=== PATIENT | female | born 1950 | race Caucasian/White ===

== ENCOUNTER 2022-03-31 12:26 | Outpatient (REF) | payer OTHER, SELFPAY ==
[2022-03-31 13:35] LABS: Binax Now Covid-19 Ag Negative (Negative)
[2022-03-31 13:36] LABS: Binax Internal Control QC Valid; Binax Performed by: HO.BONILM
[2022-03-31 13:50] LABS: MANUAL DIFF FLAG NO
[2022-03-31 14:02] LABS: Basophils Absolute Auto 0.1 X10*3/uL (0.0-0.2); Basophils Percent Auto 0.5 % (0-2); Eosinophils Absolute Auto 0.3 X10*3/uL (0.0-0.4); Eosinophils Percent Auto 3.3 % (0-4); Hematocrit 44.6 % (37.0-47.0); Hemoglobin 14.4 g/dl (12.0-16.0); Imm Gran Abs Auto 0.03 X10*3/uL (0.00-0.03); Imm Gran Pct Auto 0.3 % (0.0-0.4); Lymphocytes Absolute Auto 1.9 X10*3/uL (1.2-4.9); Lymphocytes Percent Auto 19.9 % (20-40); Mean Corpuscular HGB Conc 32.3 g/dl (31.0-35.0); Mean Corpuscular Volume 95.9 fL (80.0-98.0); Mean Platelet Volume 11.2 fL (9.4-12.3); Monocytes Absolute Auto 0.8 X10*3/uL (0.1-1.2); Monocytes Percent Auto 7.9 % (2-11); Neutrophils Absolute Auto 6.5 x10*3/uL (2.0-8.3); Neutrophils Percent Auto 68.1 % (45-73); Platelet Count 254 X10*3/uL (160-400); Red Blood Count 4.65 X10*6/uL (4.20-5.50); Red Cell Distribution Width 13.2 % (11.0-16.0); White Blood Count 9.5 X10*3/uL (4.8-10.8)
[2022-03-31 14:11] LABS: Alanine Aminotransferase 16 U/L (0-31); Albumin Level 4.3 g/dL (3.5-5.0); Alkaline Phosphatase 109 U/L (39-117); Anion Gap 15 (12-20); Aspartate Amino Transferase 19 U/L (5-31); Bilirubin Total 0.8 mg/dL (0.0-1.0); Blood Urea Nitrogen 15 mg/dL (9-16); Calcium 9.8 mg/dL (8.4-10.2); Carbon Dioxide 24 mmol/L (22-29); Chloride 103 mmol/L (96-108); Cholesterol 202 mg/dL; Estimated Glomerular Filt Rate > 60; Glucose Fasting 112 mg/dL (60-99); HDL Cholesterol 39 mg/dL; LDL Cholesterol Calculated 118 mg/dl; Potassium 4.6 mmol/L (3.3-5.1); Sodium 137 mmol/L (135-145); Total Protein 6.6 g/dL (6.5-8.0); Triglycerides 228 mg/dL
[2022-03-31 14:31] LABS: TSH reflex Free T4 0.98 uIU/mL (0.32-4.0)
== END 2022-03-31 12:27 | disposition home or self-care (01) ==
LOC: HO.HMGCLDS 12:26
PROVIDERS: PCP Internal Medicine; Visit Provider Internal Medicine
DX: E66.09 Other obesity due to excess calories (principal); J02.9 Acute pharyngitis, unspecified; Z76.89 Persons encountering health services in other specified circumstances
CPT/HCPCS: 36415; 80053; 80061; 84443; 85025

== ENCOUNTER 2022-04-07 08:04 | Outpatient (REF) | payer OTHER, SELFPAY ==
--- NOTE | ~2022-04-07 | MM_ITS ---
EXAMINATION: MM SCREENING DIGITAL BREAST TOMOSYNTHESIS, BILATERAL CLINICAL INFORMATION: Screening. Asymptomatic. The lifetime risk of breast cancer based on the Tyrer-Cuzick Model is 3%. COMPARISON: Outside mammography: 08/14/2019, 08/04/2018, 07/13/2016 ([place]). TECHNIQUE: Digital breast tomosynthesis is performed in both the craniocaudal and mediolateral oblique views along with computer-aided detection (CAD). Synthesized 2D images are generated from the tomosynthesis. FINDINGS: There are scattered areas of fibroglandular density (ACR BI-RADS breast composition Category b). There are no significant masses, abnormal calcifications, or other abnormalities. Parenchymal pattern is similar to prior studies. No developing density. The axilla and skin contours are unremarkable. MM/MM tomosynthesis screening BI IMPRESSION: No mammographic evidence of malignancy. ASSESSMENT: BI-RADS 1: Negative RECOMMENDATION: Routine annual mammography screening. This patient's information was entered into a reminder system with a target due date for their next mammogram.
== END 2022-04-07 08:05 | disposition home or self-care (01) ==
LOC: HO.MAMMO 08:04
PROVIDERS: Visit Provider Internal Medicine
DX: Z12.31 Encounter for screening mammogram for malignant neoplasm of breast (principal)
CPT/HCPCS: 77063; 77067

== ENCOUNTER → 2022-05-19 14:17 | Outpatient (BNVA) | payer OTHER, SELFPAY | PROVIDERS: PCP Internal Medicine; Visit Provider Nurse Practitioner Family | DX: Z01.818 Encounter for other preprocedural examination (principal) | CPT/HCPCS: 99202 ==

== ENCOUNTER 2022-05-27 14:38 | Outpatient (REF) | payer OTHER, SELFPAY ==
--- NOTE | ~2022-05-27 | US_ITS ---
EXAMINATION: US VENOUS ULTRASOUND WITH DOPPLER LOWER EXTREMITY, LEFT CLINICAL INFORMATION: Left lower extremity edema COMPARISON: None TECHNIQUE: Ultrasound of the deep veins is performed from the hip to the calf with compression sonography and color and pulse Doppler assessment. Spectral analysis with color-flow imaging is performed. FINDINGS: There is normal venous compression and respiratory variation and augmented flow. The visualized common femoral vein, superficial femoral vein, profunda femoral vein, popliteal vein, and the trifurcation region shows no evidence of deep venous thrombosis. There is no significant popliteal fossa cyst. The right common femoral vein appears normal. If the patient's symptoms persist, followup ultrasound in 5 days 7 days might be of value to exclude proximal propagation from a non-visualized calf vein. US/US venous duplex LE LT IMPRESSION: No DVT demonstrated in the left lower extremity.
== END 2022-05-27 14:39 | disposition home or self-care (01) ==
LOC: HO.US 14:38
PROVIDERS: Visit Provider Internal Medicine
DX: R60.0 Localized edema (principal)
CPT/HCPCS: 93971

== ENCOUNTER 2022-07-22 10:04 | Outpatient (REF) | payer OTHER, SELFPAY ==
--- NOTE | ~2022-07-22 | XR_ITS ---
EXAMINATION: XR AP BILATERAL KNEE AND RIGHT KNEE CLINICAL INFORMATION: Pain right knee. COMPARISON: None TECHNIQUE: AP bilateral knee standing. Right knee 2 views. FINDINGS: AP BILATERAL KNEE: There is mild reduction in the medial compartment of both knees. The lateral compartment joint space is maintained normal. No bony erosive changes seen. There is a 1.9 cm calcified density medial to the proximal left tibia. LEFT KNEE: There is mild reduction in patellofemoral compartment joint space without joint effusion or bony erosive changes. There is mild soft tissue swelling. XR/XR knee LT 2V IMPRESSION: 1. Degenerative arthritic changes medial compartment both knees. No visible acute fracture or dislocation seen. 2. Round soft tissue calcification medial to the proximal tibia left knee.
--- NOTE | ~2022-07-22 | XR_ITS ---
EXAMINATION: XR AP BILATERAL KNEE AND RIGHT KNEE CLINICAL INFORMATION: Pain right knee. COMPARISON: None TECHNIQUE: AP bilateral knee standing. Right knee 2 views. FINDINGS: AP BILATERAL KNEE: There is mild reduction in the medial compartment of both knees. The lateral compartment joint space is maintained normal. No bony erosive changes seen. There is a 1.9 cm calcified density medial to the proximal left tibia. LEFT KNEE: There is mild reduction in patellofemoral compartment joint space without joint effusion or bony erosive changes. There is mild soft tissue swelling. XR/XR knee standing BI IMPRESSION: 1. Degenerative arthritic changes medial compartment both knees. No visible acute fracture or dislocation seen. 2. Round soft tissue calcification medial to the proximal tibia left knee.
== END 2022-07-22 10:05 | disposition home or self-care (01) ==
LOC: HO.HOSX 10:04
PROVIDERS: Visit Provider Physician Assistant
DX: M17.12 Unilateral primary osteoarthritis, left knee (principal); M25.561 Pain in right knee
CPT/HCPCS: 20610; 73560; 73565; 99202; J1040

== ENCOUNTER 2024-04-10 13:55 | Outpatient (AMB) | payer OTHER, SELFPAY ==
[2024-04-10 13:56] VITALS: BP 110/60; PULSE 71; O2SAT 96; BMI 23.0
--- NOTE | 2024-04-10 13:56 | A.OFFPC_ITS ---
Vital Signs 3 04/10/24 13:56 Height 5 ft 2 in Weight 126 lb BMI 23.0 BP 110/60 Blood Pressure Location Rt brachial Position Sitting Pulse 71 Pulse Source Pulse Oximeter Pulse Oximetry (%) 96 Oxygen Delivery Method Room Air Intake Visit Reasons: Physical Allergies Sulfa (Sulfonamide Antibiotics) Adverse Reaction (Mild, Verified 04/10/24 13:56) Rash Medication List - Last Reconciled 04/10/24 by Michael Su MD calcium carbonate (Calcium 600) 600 mg PO DAILY ipratropium bromide 2 sprays intranasal TID magnesium citrate 100 mg PO DAILY multivitamin (Daily Multi-Vitamin tablet) 1 tab PO DAILY Tobacco use date assessed: 04/10/24 Fall risk assessment: No Falls in past year Last assessed Fall Risk: 04/10/24 Dental Screening Dental Screen Date: 04/10/24 Did you have a dental visit in the last 12 months?: Yes Did you have a dental problem in the last 6 months where you did not have access to dental care?: No Was dental information given to patient?: Patient has dentist HPI Physical 2 HPI0 Details Patient is 68-year-old female came for physical exam Patient does not want to have mammogram or bone density She had a Cologuard test done in April of 2022 which is negative Patient is requesting a referral to orthopedic for cortisone injection left knee She has also developed pain SI joint on left side she does not want any injections in that joint I would recommend to take a leave with breakfast and see if that helps Patient have impaired fasting sugar, she will have labs done today. She offer no other complaints. [facility] Medical History No significant past medical history Surgical History Hx of colonoscopy H/O arthroscopy of left knee Family History Sister Pancreatic cancer Brother Gallbladder cancer Father Respiratory failure Social History Housing: Apartment Patient Tobacco Use Status: Former Tobacco user e-Cigarette/Vaping Use: Never Used service: No Current occupational status: retired Cognitive needs: No Hearing needs: No Vision needs: No Questionnaire PHQ-9 Over the last 2 weeks, how often have you been bothered by any of the following problems? 1. Little interest or pleasure in doing things: not at all 2. Feeling down, depressed, or hopeless: not at all 3. Trouble falling or staying asleep, or sleeping too much: several days 4. Feeling tired or having little energy: several days 5. Poor appetite or overeating: several days 6. Feeling bad about yourself - or that you are a failure or have let yourself or your family down: several days 7. Trouble concentrating on things, such as reading the newspaper or watching television: not at all 8. Moving or speaking so slowly that other people could have noticed. Or the opposite - being so fidgety or restless that you have been moving around a lot more than usual: not at all 9. Thoughts that you would be better off or of hurting yourself in some way: not at all Total score: 4 Depression Screening Interpretation: Negative Depression Screening Done: Yes 85813 - PHQ-9 Billing: Yes Source: Developed by Drs. Patrice Dutta, Najma Castañeda, Nick Mendez and colleagues, with an educational rocío from [facility]. Thrive Questionnaire Date Thrive assessed: 04/21/22 I am a: Patient What is your living situation today?: I have a steady place to live Within the past 12 months, did the food you bought not last and you didn't have the money to get more?: Often true Within the past 12 months, did you worry whether your food would run out before you got money to buy more?: Often true Do you have trouble paying for medicines?: Yes Do you have trouble getting transportation to medical appointments?: Yes Do you have trouble paying your heating and electricity bill?: No Do you have trouble taking care of your child, family member or friend?: No Do you have trouble with day-to-day activities such as bathing, preparing meals, shopping, managing finances, etc.?: No Are you currently unemployed and looking for a job?: No Are you interested in more education?: No Please select the resources that you would like help with: None Currently or been in a relationship where the following occur: no concerns reported THRIVE Score: 3 EBONIE-7 AMB Questionnaire EBONIE-7 Date EBONIE - 7 assessed: 04/10/24 Feeling nervous, anxious, or on edge: 0 = Not at all Not being able to stop or control worryin = Several days Worrying too much about different things: 1 = Several days Trouble relaxin = Not at all Being so restless that it is hard to sit still: 0 = Not at all Becoming easily annoyed or irritable: 0 = Not at all Feeling afraid as if something awful might happen: 0 = Not at all Total EBONIE-7 score (0-4 normal; 5-9 mild; 10-14 moderate; 15-21 severe): 2 Source: Developed by Drs. Patrice Dutta, Najma Castañeda, Nick Mendez and colleagues, with an educational rocío from [facility]. EBONIE-7 Assessment Billing EBONIE-7 Assessment Tool: EBONIE-7 Assessment 82631 Review of Systems Const Denies chills, Denies fever(s) and Denies headache(s) Eyes Denies blurry vision ENT Denies headache(s), Denies nasal discharge, Denies nasal obstruction, Denies odynophagia and Denies sinus pain Card Denies chest pain at rest and Denies chest pain with activity Resp Denies cough and Denies hemoptysis GI Denies diarrhea, Denies odynophagia, Denies vomiting and Denies hematemesis Reports as per HPI Musc Denies abnormal gait Skin/Breast Reports as per HPI Neuro Denies Neuro-related abnormal movements, Denies Abnormal speech present, Denies abnormal gait, Denies headache(s) and Denies Sensory deficit (Neuro) Psych Denies mood swings and Denies paranoia Endo Reports as per HPI Dennys/Lymph Reports as per HPI Aller/Immun Reports as per HPI Physical exam (Primary Care) Vital Signs: Last Vital Signs Pulse 71 04/10/24 13:56 BP 110/60 04/10/24 13:56 Pulse Ox 96 04/10/24 13:56 Oxygen Delivery Method Room Air 04/10/24 13:56 BMI result Body Mass Index 23.0 Tobacco/Smoking Status: Tobacco use Status Tobacco use date assessed 04/10/24 04/10/24 14:03 Patient Tobacco Use Status Former Tobacco user 04/10/24 14:03 e-Cigarette/Vaping Use Never Used 04/10/24 14:03 Depression Screening Interpretation: Negative Thrive Assessment: Date of Thrive Assessment Date Thrive assessed 03/31/22 04/10/24 14:03 Currently or been in a relationship where the following occur: no concerns reported Const General: cooperative, comfortable and no acute distress Orientation/consciousness: patient oriented x3 HENMT Head: Yes normocephalic and Yes atraumatic Eyes General: appearance normal, both eyes and all related structures Pupils: Equal, round and reactive pupils present EOM: EOMs intact bilaterally Neck Neck: Yes supple and No lymphadenopathy Thyroid: Thyroid normal Lymphatic: no lymphadenopathy noted Chest Breast/axilla palpation: normal palpation of the breasts Resp Effort & Inspection: normal respiratory effort and able to speak in complete sentences Auscultation: clear to auscultation bilaterally Cardio Heart sounds: S1 normal heart sound present and S2 normal heart sound present GI Palpation (GI): Soft to palpation and nontender Auscultation: normal bowel sounds General: Yes no CVA tenderness Back/Spine/Pelvis Back: no CVA tenderness Back/spine/pelvis image: 2 1. Pain with pressure Skin General skin exam: elasticity normal and turgor normal Neuro General: patient oriented x3 and gait normal Cranial nerves: Yes Equal, round and reactive pupils present Speech: No Abnormal speech present Sensory Exam: No Sensory deficit (Neuro) Coordination: Romberg test negative Extrem General: Yes normal exam except as noted and No edema Elbow/forearm/wrist images: 2 1. Tender to palpation, larger than right knee Assessment and Plan Assessment & Plan (1) Encounter for general adult medical examination with abnormal findings: Code(s): Z00.01 - Encounter for general adult medical examination with abnormal findings (2) Impaired fasting blood sugar: Code(s): R73.01 - Impaired fasting glucose (3) Osteoarthritis of multiple joints: Code(s): M15.9 - Polyosteoarthritis, unspecified Qualifiers: Osteoarthritis type: primary Qualified Code(s): M15.9 - Polyosteoarthritis, unspecified (4) Pain and swelling of left knee: Code(s): M25.562 - Pain in left knee; M25.462 - Effusion, left knee (5) Mammogram declined: Code(s): Z53.20 - Procedure and treatment not carried out because of patient's decision for unspecified reasons Plan Patient is 68-year-old female came for physical exam Patient does not want to have mammogram or bone density She had a Cologuard test done in April of 2022 which is negative Patient is requesting a referral to orthopedic for cortisone injection left knee She has also developed pain SI joint on left side she does not want any injections in that joint I would recommend to take a leave with breakfast and see if that helps Patient have impaired fasting sugar, she will have labs done today. She offer no other complaints. Orders: Orders 2 Comprehensive Met. Panel Today M15.9 - Polyosteoarthritis, unspecified, R73.01 - Impaired fasting glucose, Z00.01 - Encounter for general adult medical examination with abnormal findings Hemoglobin A1c Today M15.9 - Polyosteoarthritis, unspecified, R73.01 - Impaired fasting glucose, Z00.01 - Encounter for general adult medical examination with abnormal findings Complete Blood Count Auto Diff Today M15.9 - Polyosteoarthritis, unspecified, R73.01 - Impaired fasting glucose, Z00.01 - Encounter for general adult medical examination with abnormal findings LDL Cholesterol Direct Today M15.9 - Polyosteoarthritis, unspecified, R73.01 - Impaired fasting glucose, Z00.01 - Encounter for general adult medical examination with abnormal findings Vitamin D 25-OH (D2 and D3) Today M15.9 - Polyosteoarthritis, unspecified Referrals 2 Orthopedics Referral M25.462 - Effusion, left knee, M25.562 - Pain in left knee Coding Level of Care Code Est Pt Prev Care >65y(85863) Diagnoses Encounter for general adult medical examination with abnormal findings Z00.01 Impaired fasting blood sugar R73.01 Primary osteoarthritis involving multiple joints M15.9 Osteoarthritis type: primary Pain and swelling of left knee M25.562; M25.462 Mammogram declined Z53.20 Additional Codes EBONIE-7 Assessment Billing - EBONIE-7 Assessment Tool: EBONIE-7 Assessment 11920 ([id number])
== END 2024-04-10 14:24 | disposition home or self-care (01) ==
PROVIDERS: PCP Internal Medicine; Visit Provider Internal Medicine
DX: Z00.00 Encounter for general adult medical examination without abnormal findings (principal); R73.01 Impaired fasting glucose; M15.9 Polyosteoarthritis, unspecified; M25.562 Pain in left knee; M25.462 Effusion, left knee; Z53.20 Procedure and treatment not carried out because of patient's decision for unspecified reasons
CPT/HCPCS: 99397

== ENCOUNTER 2024-04-10 14:15 | Outpatient (REF) | payer OTHER, SELFPAY ==
[2024-04-10 16:28] LABS: MANUAL DIFF FLAG NO
[2024-04-10 16:37] LABS: Basophils Percent Auto 0.5 % (0-2); Eosinophils Absolute Auto 0.2 X10*3/uL (0.0-0.4); Eosinophils Percent Auto 2.8 % (0-4); Hematocrit 42.9 % (37.0-47.0); Hemoglobin 14.3 g/dl (12.0-16.0); Imm Gran Abs Auto 0.01 X10*3/uL (0.00-0.03); Imm Gran Pct Auto 0.2 % (0.0-0.4); Lymphocytes Absolute Auto 2.5 X10*3/uL (1.2-4.9); Mean Corpuscular HGB Conc 33.3 g/dl (31.0-35.0); Mean Corpuscular Hemoglobin 31.2 pg (27.0-33.0); Mean Corpuscular Volume 93.5 fL (80.0-98.0); Mean Platelet Volume 11.6 fL (9.4-12.3); Monocytes Absolute Auto 0.6 X10*3/uL (0.1-1.2); Monocytes Percent Auto 9.6 % (2-11); Neutrophils Absolute Auto 2.4 x10*3/uL (2.0-8.3); Neutrophils Percent Auto 42.9 % (45-73); Platelet Count 236 X10*3/uL (160-400); Red Blood Count 4.59 X10*6/uL (4.20-5.50); Red Cell Distribution Width 13.1 % (11.0-16.0); White Blood Count 5.7 X10*3/uL (4.8-10.8)
[2024-04-10 17:06] LABS: Estimated Average Glucose 123 mg/dL; Hemoglobin A1C 148.8661 umol/L; Hemoglobin A1c % 5.9 % (<6.0)
[2024-04-10 17:20] LABS: Alanine Aminotransferase 19 U/L (0-31); Albumin Level 4.3 g/dL (3.5-5.0); Alkaline Phosphatase 118 U/L (39-117); Anion Gap 15 (12-20); Aspartate Amino Transferase 26 U/L (5-31); Bilirubin Total 0.5 mg/dL (0.0-1.0); Blood Urea Nitrogen 15 mg/dL (9-16); Calcium 9.8 mg/dL (8.4-10.2); Carbon Dioxide 24 mmol/L (22-29); Chloride 105 mmol/L (96-108); Estimated Glomerular Filt Rate 58; Glucose Random 102 mg/dL (60-115); Potassium 4.3 mmol/L (3.3-5.1); Sodium 140 mmol/L (135-145); Total Protein 7.4 g/dL (6.5-8.0)
[2024-04-11 11:48] LABS: LDL Cholesterol Direct 114 mg/dL (<100)
[2024-04-15 15:49] LABS: Vitamin D 25-OH, D2 <4 ng/mL; Vitamin D 25-OH, D3 19 ng/mL; Vitamin D 25-OH, Total 19 ng/mL (30-100)
== END 2024-04-10 14:16 | disposition home or self-care (01) ==
LOC: HO.HMGCLDS 14:15
PROVIDERS: PCP Internal Medicine; Visit Provider Internal Medicine
DX: Z00.01 Encounter for general adult medical examination with abnormal findings (principal); M15.9 Polyosteoarthritis, unspecified; R73.01 Impaired fasting glucose
CPT/HCPCS: 36415; 80053; 82306; 83036; 83721; 85025

== ENCOUNTER 2025-04-10 11:29 | Outpatient (AMB) | payer MEDICARE, SELFPAY ==
--- NOTE | 2025-04-10 11:28 | AM.OFFWIN_ITS ---
Intake Vital Signs 04/10/25 11:33 Weight 156 lb BP 138/80 Blood Pressure Location Lt brachial Position Sitting Pulse 74 Pulse Source Pulse Oximeter Temp 97.5 F Temp Source Oral Pulse Oximetry (%) 98 Oxygen Delivery Method Room Air Intake Visit Reasons: EP-cold symptoms, headaches Intake Note: Patient here for cold symptoms and headaches . Patient Tobacco Use Status: Former Tobacco user Allergies Sulfa (Sulfonamide Antibiotics) Adverse Reaction (Mild, Verified 04/10/25 11:36) Rash Do you need a note to return to daycare/school/sports/work: No HPI HPI Comments History of Present Illness Details History - The patient is a 74-year-old female pr esenting with a persistent cough lasting two weeks. - Symptoms include congestion, shortness of breath, wheezing, slight fever initially, night sweats, fatigue, and greenish nasal discharge. - The onset of symptoms was approximatel y two weeks prior to the visit. - Attempted relief with OTC medications provided transient relief. - Patient uses a neti pot for nasal hygi hyun with some effectiveness in mucus clearance. - Patient reported a past history of smo rosario (quit 13 years ago) but no current smoking or use of inhalers. Physical Exam General: Cooperative, healthy appearing, comfortable and no acute distress Orientation/consciousness: Patient oriented x3 Limitations: No limitations Head: Normal to inspection Ears: Hearing grossly normal bilaterally, external ears red but no infection, TM's normal bilaterally Nose: Normal external nose present, Normal nares present and green nasal discharge present Face and sinus: Normal facial exam and Yes sinuses nontender Mouth: Normal oral and palatal mucosa present and moist mucous membranes Throat: Yes tonsils normal, Yes uvula midline. Posterior oropharynx erythema Eyes: Appearance normal, both eyes and all related structures Neck: Normal visual inspection Respiratory: Clear to auscultation bilaterally. Normal respiratory effort, able to speak in complete sentences, Actively coughing, no respiratory distress, not tachypneic, no tripod positioning and no use of accessory muscles Cardiovascular: Regular rate and rhythm. Normal S1 and S2 Skin: No rashes or lesions noted Neuro: Patient oriented x3 Extremities: Normal to inspection and Yes no clubbing, cyanosis or edema PFSH Medical History No significant past medical history Surgical History Hx of colonoscopy H/O arthroscopy of left knee Family History Sister Pancreatic cancer Brother Gallbladder cancer Father Respiratory failure Social History Housing: Apartment Patient Tobacco Use Status: Former Tobacco user e-Cigarette/Vaping Use: Never Used service: No Current occupational status: retired Cognitive needs: No Hearing needs: No Vision needs: No Review of Systems Const All systems reviewed & are unremarkable except as noted in HPI and below Physical Exam Vital Signs: Last Vital Signs Temp 97.5 F 04/10/25 11:33 Pulse 74 04/10/25 11:33 BP 138/80 04/10/25 11:33 Pulse Ox 98 04/10/25 11:33 Oxygen Delivery Method Room Air 04/10/25 11:33 Assessment & Plan Assessment & Plan (1) URI, acute: Code(s): J06.9 - Acute upper respiratory infection, unspecified Plan: VSS, pt well appearing and PE unremarkable. I will start treatment with Azithromycin due to the likely bacterial cause of prolonged symptoms. The patient is advised to continue using a saline nasal spray and neti pot, with an encouragement on adequate hydration. The clear lung examination indicates no need for immediate imaging. A cough suppressant is prescribed for nighttime use. Continuation with her primary care provider is advised if symptoms persist further, notably the night sweats. Prescription details are electronically sent to the pharmacy with guidance on filling the medication when ready. Patient was informed and verbally consented to the use of an ambient scribe for clinic note documentation during this visit Medications: New azithromycin For 250 mg dose pack: take 500 mg today (day 1), then 250 mg for 4 days (days 2-5) PO 6 tabs 0RF benzonatate 200 mg PO BEDTIME PRN 10 caps 0RF cough Coding Level of Care Code Est Pt Level 3 (46297) Diagnoses URI, acute J06.9
[2025-04-10 11:33] VITALS: BP 138/80; PULSE 74; TEMP 36.4; O2SAT 98
--- OUTSIDE RECORDS SUMMARY | 2025-04-10 12:51 | XMS_ITS | Clinical Summary ---
Author Organization [facility] ity Address [address] [place] [address] Care Team Providers Care Cell Inspector Name Role Phone Unavailable Primary Care Provider Unavailabl e Surgical History Surgery Date Site/Laterality Comments NASAL SEPTUM SURGERY PROCEDURE: IN REPAIR NASAL SEPTAL PERFORATIONS UPPER GASTROINTESTINAL ENDOSCOPY 2010 PROCEDURE: IN UPPER GI ENDOSCOPY PERFORMED; COMMENT: Michelle at [facility] for melena. COLONOSCOPY 2010 PROCEDURE: HISTORICAL COLONOSCOPY; COMMENT: Michelle at [facility]; negative Family History Medical History Relation Name Comments Other cancer Brother 1 bladder Other: copd Father Mental illness Mother parkinsons Other: ca other Sister 1 pancreas Breast cancer Neg Hx Relation Name Status Comments Brother 1 Brother 2 bladder cancer Brother 3 Alive Daughter 1 Alive Daughter 2 Alive Daughter 3 Alive Daughter 4 Alive Daughter 5 Alive Father emphysema Mother PD, kidney Sister 1 Sister 2 pancreatic canc er Sister 3 aortic aneurysm ? Social History Tobacco Use Types Packs/Day Years Used Date Smoking Tobacco: Former Cigarettes 1 50.4 0 1961 - 11/21/2011 Smokeless Tobacco: Never Alcohol Use Standard Drinks/Week Comments Yes 0 (1 standard drink = 0.6 oz pur e alcohol) Comments Unknown Sex and Gender Information Value Date Recorded Sex Assigned at Not on file Legal Sex Female 7:49 AM EST Gender Identity Not on file Sexual Orientation Not on file Obstetrics History Plan of Treatment Health Maintenance Due Date Last Done Comments Pneumococcal Vaccine: 50+ Years (1 of 1 - PCV) 1998 Zoster Vaccines (1 of 2) 1998 RSV Immunization Adult Patients (1 - 1-dose 75+ series) 2023 DTaP,Tdap,and Td Vaccines (2 - Td or Tdap) 12/25/2023 12/25/2013 COVID-19 Vaccine ( - 2023-2 5 season) 2024 Influenza Vaccine (Season Ended) 2025 08/25/2020, 09/26/2015 Breast Cancer Screening Discontinued 08/14/20 19, 08/04/2018 HIB Vaccines Aged Out No longer eligi ble based on patient's age to complete this topic HPV Vaccines Aged Out No longer eligi ble based on patient's age to complete this topic Hepatitis A Vaccines Aged Out No long er eligible based on patient's age to complete this topic Hepatitis B Vaccines Aged Out No long er eligible based on patient's age to complete this topic IPV Vaccines Aged Out No longer eligi ble based on patient's age to complete this topic MMR Vaccines Aged Out No longer eligi ble based on patient's age to complete this topic Meningococcal ACWY Vaccine Aged Out N o longer eligible based on patient's age to complete this topic Meningococcal B Vaccine Aged Out No l onger eligible based on patient's age to complete this topic RSV Immunization Patients Under 20 months Aged Out No longer eligible based on patient's age to complete this topic Varicella Vaccines Aged Out No longer eligible based on patient's age to complete this topic Procedures Procedure Name Priority Date/Time Associated Diagnosis Comments SCR MAMMO BI INCL CAD Routine 08/14/2019 1:15 PM EDT Encounter for screening mammogram for malignant neoplasm of breast from Last 3 Months or Most Recently Relevant to Health Maintenance Results * SCR MAMMO BI INCL CAD (08/14/2019 1:15 PM EDT) Anatomical Region Laterality Modality Radiographic Phuong ging 08/04/2018 1:33 PM EDT Narrative 08/15/2019 3:27 PM EDT This is a summary report. The complete report is available in the patient's medical record. If you cannot access the medical record, please contact the sending organization for a detailed fax or copy. Exam: Screening mammogram Findings: Digital bilateral full-field screening mammography is performed and interpreted with the aid of computer-aided detection. ??Comparison is made with 08/04/2018 and as far back as 03/08/2013. Breast parenchyma is composed of scattered fibroglandular densities. ??No new suspicious mass, architectural distortion, or suspicious calcifications. Impression: No mammographic evidence of malignancy. BI-RADS 1 - negative 5 year breast cancer risk assessment 1.4 % Lifetime breast cancer risk assessment 4.0 % Breast cancer risk category Low (<15%) Procedure Note Esperanza Sams MD - 11/09/2022 This is a summary report. The complete report is available in thepatient's medical record. If you cannot access the medical record, pleasecontact the sending organization for a detailed fax or copy. Exam: Screening mammogram Findings: Digital bilateral full-field screening mammography is performedand interpreted with the aid of computer-aided detection. Comparison ismade with 08/04/2018 and as far back as 03/08/2013. Breast parenchyma is composed of scattered fibroglandular densities. Nonew suspicious mass, architectural distortion, or suspiciouscalcifications. Impression: No mammographic evidence of malignancy. BI-RADS 1 - negative 5 year breast cancer risk assessment 1.4 % Lifetime breast cancer risk assessment 4.0 % Breast cancer risk category Low (<15%) us Kendra Acosta MD IMG XR PROCEDURES Fi nal Result from Last 3 Months or Most Recently Relevant to Health Maintenance
--- OUTSIDE RECORDS SUMMARY | 2025-04-10 12:51 | XMS_ITS | Data Portability ---
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 Nasal examination demonstrates patent nasal passages without turbinate hypertrophy, mucosal edema, or purulence. Septum is normal. Patient reports moderate symptomatic benefit with intranasal ipratropium bromide 3 times daily. I will refill this medication. Also recommend saline irrigations twice weekly as tolerated. Patient will follow-up in our office as needed. [email or web address] Not available 03/07/2025 10:25:27 Plan of Treatment Reminders Order Date Submit Date Provider Last Modified By Organization Details Last Modified Time Details Appointments None recorded. Lab None recorded. Referral None recorded. Procedures None recorded. Surgeries None recorded. Imaging None recorded. Medication Orders ipratropium bromide 21 mcg (0.03 %) nasal spray 2024 025 [facility] #[id number], [address] [place] JOSE, [id number], 10:22:37 Patient TargetsNo targets recorded. Patient InstructionsNo instructions recorded. Reason for Referral None Reported. Problems Name Problem SNOMED Code Status Onset Date Resolution Date Notes Provider Name and Address Organization Details Recorded Time Sensorine ural hearing loss of bilateral ears 619772783 Active 2017 Sensorine ural hearing loss, bilateral ; Note: Date Diagnosed : 05/04/2018 11:38 AM (H90.3) Not Available [facility] 4 03:15:06 Dizziness and giddiness 363023745 Active 2017 Dizziness and giddiness ; Note: Date Diagnosed : 05/04/2018 11:38 AM (R42) Not Available [facility] 4 03:15:06 Tinnitus of left ear 77227221150 06 Active 2019 Tinnitus, left ear; Note: Date Diagnosed : 05/21/2020 11:53 AM (H93.12) Not Available [facility] 4 03:15:06 Vasomotor rhinitis 0692080 Active 2021 Vasomotor rhinitis; Note: Date Diagnosed : 07/28/2022 1:38 PM (J30.0) Not Available [facility] 4 03:15:06 Bilateral diffuse otitis externa 80465324285 52910 Active 2019 Diffuse otitis externa, bilateral ; Note: Date Diagnosed : 05/21/2020 11:53 AM (H60.313) Not Available [facility] 4 03:15:06 Anterior rhinorrhe a 827452648 Active 2024 SELENA POLLACK PA-C [address] [place] [address], [phone] , [facility] - [facility] 5 10:21:48 Problem Notes None recorded. Medical Equipment None Reported. Allergies Allergen ID Allergen Name Allergen Category Reaction Reaction Severity Criticality Documentation Date Start Date Code Code System Note Provider Name and Address Organization Details Recorded Time 116437 Product containin g penicilli n (product) medicatio n other Not available Not available 04/03/2024 66741 8001 SNOMED React ion: unkno wn, unspe cifie d;; Not Available [facility] 4 01:20:04 172202 Substance with sulfonami de structure and antibacte rial mechanism of action (substanc e) medicatio n other Not available Not available 04/03/2024 53821 8003 SNOMED React ion: unkno wn, unspe cifie d;; Not Available [facility] 4 01:20:04 Medications Name Sig Start Date Stop Date Status Note LastModified by Organization Details LastModified Time alendronat e 70 mg tablet 2017 active Medicatio n ID: [id number] Du ration Value: 84 Brand Name: alendrona te Send Method: E-Prescri bed Subs Allowed: subs OK Medica tionGener icName: alendrona te Not Available Not Available Not Available clotrimazo le-betamet hasone 1 %-0.05 % topical cream Apply 1 a small amount twice a day 2021 active Medicatio n ID: [id number] Du ration Value: 14 Brand Name: clotrimaz ole-betam ethasone Send Method: E-Prescri bed Subs Allowed: subs OK Specia l Instructi on: Apply with fingertip to external ear as needed for itching M edication GenericNa me: clotrimaz ole-betam ethasone Not Available Not Available Not Available ipratropiu m bromide 21 mcg (0.03 %) nasal spray USE 2 SPRAYS IN EACH NOSTRIL THREE TIMES DAILY DIRECTED active Not Available Not Available No t Available Vitals Date Recorded Body height Body mass index (BMI) Body weight Provider Name and Address Organization Details Last Updated DateTime 03/07/2025 157.48 cm 28 kg/m2 30373.63 g MACI MONROE [place] - [facility] 03/07/2025 10:17:04 Social History None recorded. Functional Status None recorded. Mental Status None recorded. Family History Nothing Reported. Medical History No medical history recorded. Gynecological HistoryNo gynecological history recorded. Obstetrics History GPAL:G 0 P 0 0 0 0 Past Encounters Encounter ID Performer Location Encounter Start Date Encounter Closed Date Diagnosis/Indication Diagnosis SNOMED-CT Code Diagnosis ICD10 Code Diagnosis Note [id number] SELNEA POLLACK PA-C [facility] [address] [id number] 03/07/2025 10:01:39 03/07/2025 10:25:33 Anterior rhinorrhea 563359480 J34.89 Vasomotor rhinitis 49142 03 J30.0 Health Concerns Section Related Observation LastModified by Organization Detai LastModified Time None Recorded Concern Status LastModified by Organization Details LastModified Time None Recorded Advance Directives Directive None Recorded Payers Insurance Date Sequence Insurance Name Policy Number Policy Louise Covered Member ID Louise Member ID Guarantor Name 03/07/2025 1 [facility] (MEDICARE REPLACEMENT/A DVANTAGE - HMO) [id number] Tonya Gracia [id number] Tonya Gracia Notes Date Note Type Note Provider Name and Address Organization Details Recorded Time 03/07/2025 text/html 74-year-old femdiana lafleur presents for evaluation of the nose. She uses intranasal ipratropium bromide, and reports moderate symptomatic benefit. Denies frequent sneezing or nasal congestion. Occasional itchy eyes. She reports negative allergy workup in the past. No new concerns today. BERNY ZAMORA MD [address] [place] [address], [phone] - [facility] 03/07/2025 17:03:55 OBGyn Episode No OBEpisode recorded.
== END 2025-04-10 12:27 | disposition home or self-care (01) ==
PROVIDERS: PCP Internal Medicine; Visit Provider Physician Assistant
DX: J06.9 Acute upper respiratory infection, unspecified (principal)

== ENCOUNTER → 2025-04-10 11:29 | Outpatient (BNVA) | payer MEDICARE, SELFPAY | PROVIDERS: PCP Internal Medicine; Visit Provider Physician Assistant | DX: J06.9 Acute upper respiratory infection, unspecified (principal) | CPT/HCPCS: 99212 ==

== ENCOUNTER 2025-04-24 13:02 | Outpatient (AMB) | payer MEDICARE, SELFPAY ==
[2025-04-24 13:05] VITALS: BMI 28.2
--- NOTE | 2025-04-24 13:05 | MHC.PC.OV ---
Vital Signs 04/24/25 13:05 04/24/25 13:08 Height 5 ft 2 in 5 ft 2 in Weight 154 lb 154 lb BMI 28.2 28.2 BP 120/72 Blood Pressure Location Rt brachial Position Sitting Pulse 66 Pulse Source Pulse Oximeter Temp 98.1 F Temp Source Oral Pulse Oximetry (%) 99 Oxygen Delivery Method Room Air Intake Visit Reasons: Physical Allergies Sulfa (Sulfonamide Antibiotics) Adverse Reaction (Mild, Verified 04/24/25 13:09) Rash Medication List - Last Reconciled 04/24/25 by Michael Su MD calcium carbonate (Calcium 600) 600 mg PO DAILY ipratropium bromide 2 sprays intranasal TID magnesium citrate 100 mg PO DAILY multivitamin (Daily Multi-Vitamin tablet) 1 tab PO DAILY Tobacco use date assessed: 04/24/25 Fall risk assessment: No Falls in past year Last assessed Fall Risk: 04/24/25 Dental Screening Dental Screen Date: 04/24/25 Did you have a dental visit in the last 12 months?: Yes Did you have a dental problem in the last 6 months where you did not have access to dental care?: No Was dental information given to patient?: Patient has dentist HPI Physical HPI Details Physical exam appointment - The patient is a 74-year-old female presenting for a physical examination and management of musculoskeletal pain, with specific issues including knee pain post-meniscectomy and hip pain. Left - Knee pain persists in both knees and is attributed to osteoarthritis. She previously underwent a meniscectomy performed by Dr. Trejo. She reports chronic pain that has necessitated consideration for further evaluation by Dr. Trejo, the original surgeon. There is increased difficulty with walking due to the knee and hip pain. New referral placed, x-ray of left hip ordered - The patient has been experiencing hip pain for approximately a month and a half. The hip pain has shown slight improvement but remains persistent, affecting her mobility. - She is also experiencing night sweats for an extended period, which are distressing as they lead to disturbed sleep. I have sent Detrol 1 mg tablet to be started once a day Referral to urogynecologist placed as per patient's request - Urinary urgency and frequency are of concern but no episodes of incontinence have been reported. Symptoms are persistent and often troublesome. - Her vitamin D levels were low last year supplement sent - Overall, her primary concerns during the visit were related to the musculoskeletal pain and ongoing night sweats, along with health maintenance and wellness evaluations. She also would like to see Dermatology for skin cancer screening Medical History: - Osteoarthritis multiple joints especially knees and left hip - Low vitamin D - night sweats - colonoscopy mammogram refused - urine incontinence - Cologuard ordered, last Cologuard April of 2022 Health Maintenance - Cologuard test completed in April 2022 and scheduled for repeat - Discussion of mammogram with current decision to decline - Orthopedic referral for knee pain indicated - X-ray ordered for hip pain evaluation - Referral for dermatology and urogynecology services discussed - Discussion of vitamin D supplementation due to previously low levels - referral to Dermatology placed [facility] - Dr. Trejo (Orthopedic surgeon) Medications - Aleve (for pain management) OTC Patient Instructions - Continue taking Aleve for pain management as needed. - Schedule and complete hip x-ray as ordered. - Follow up with Dr. Trejo for knee pain evaluation. - Repeat Cologuard test as scheduled. - Begin vitamin D supplementation as instructed. - Plan for three-week telemedicine visit and annual physical exam. - Advised to ensure accurate contact information for health portal to receive notifications. - start Detrol 1 mg for urine incontinence and wait for urogynecology referral Review of Systems - General: No fever no chills - Neurological: No headaches no dizziness - Ear nose throat: No sore throat no hearing difficulty no ear pain - Cardiovascular: No syncope, no chest pain, no palpitations - Gastrointestinal: No nausea vomiting or diarrhea - Endocrine: No polydipsia - Genitourinary: No dysuria - Skin: No new complaints Physical Exam General: Cooperative, healthy appearing, comfortable, no acute distress Orientation: Patient oriented x3 Head: Normal to inspection Ears: Within normal limit visually Nose: Normal external nose present Face and sinus: Normal facial exam Eyes: Appearance normal, extraocular movement intact pupils reactive Neck: Normal visual inspection and supple Respiratory: Normal respiratory effort and able to speak in complete sentences. Clear to auscultation, no stridor Cardiovascular: S1 and S2 RRR Breast exam benign GI: Normal to inspection. Soft to palpation and nontender Skin: Turgor normal, no acute findings Neuro: Patient oriented x3, motor sensory intact, balance intact, tandem pass Extremities: Normal to inspection, but patient reports pain in both knees and left hip [facility] Medical History No significant past medical history Surgical History Hx of colonoscopy H/O arthroscopy of left knee Family History Sister Pancreatic cancer Brother Gallbladder cancer Father Respiratory failure Social History Housing: Apartment Patient Tobacco Use Status: Former Tobacco user e-Cigarette/Vaping Use: Never Used service: No Current occupational status: retired Cognitive needs: No Hearing needs: No Vision needs: No Questionnaire Thrive Questionnaire Date Thrive assessed: 04/24/25 I am a: Patient What is your living situation today?: I have a steady place to live Within the past 12 months, did the food you bought not last and you didn't have the money to get more?: Never true Within the past 12 months, did you worry whether your food would run out before you got money to buy more?: Never true Do you have trouble paying for medicines?: No Do you have trouble getting transportation to medical appointments?: No Do you have trouble paying your heating and electricity bill?: No Do you have trouble taking care of your child, family member or friend?: No Do you have trouble with day-to-day activities such as bathing, preparing meals, shopping, managing finances, etc.?: No Are you currently unemployed and looking for a job?: No Are you interested in more education?: No Please select the resources that you would like help with: None Currently or been in a relationship where the following occur: No concerns reported THRIVE Score: 0 AUDIT C Alcohol Use Questionnaire (AUDIT-C) 1. How often do you have a drink containing alcohol?: 2-3 times a week 2. How many drinks containing alcohol do you have on a typical day when you are drinking?: 1 or 2 3. How often do you have six or more drinks on one occasion?: Never Total Score: 3 Score Reviewed/Action Taken: Yes EBONIE-7 AMB Questionnaire EBONIE-7 Date EBONIE - 7 assessed: 04/10/24 Source: Developed by Drs. Patrice Dutta, Najma Castañeda, Nick Mendez and colleagues, with an educational rocío from [employer]. Physical exam (Primary Care) Vital Signs: Last Vital Signs Temp 98.1 F 04/24/25 13:08 Pulse 66 04/24/25 13:08 BP 120/72 04/24/25 13:08 Pulse Ox 99 04/24/25 13:08 Oxygen Delivery Method Room Air 04/24/25 13:08 BMI result Body Mass Index 28.2 Tobacco/Smoking Status: Tobacco use Status Tobacco use date assessed 04/24/25 04/24/25 13:06 Patient Tobacco Use Status Former Tobacco user 04/24/25 13:06 e-Cigarette/Vaping Use Never Used 04/24/25 13:06 Thrive Assessment: Date of Thrive Assessment Date Thrive assessed 04/24/25 04/24/25 13:06 Currently or been in a relationship where the following occur: No concerns reported Coding Level of Care Code Est Pt Level 4 (83136) Est Pt Prev Care >65y(17004) Diagnoses Encounter for general adult medical examination with abnormal findings Z00.01 Primary osteoarthritis of left knee M17.12 Osteoarthritis type: primary Hip pain, left M25.552 Impaired fasting blood sugar R73.01 Mixed stress and urge urinary incontinence N39.46 Urinary Incontinence type: mixed stress and urge incontinence Skin cancer screening Z12.83 Mammogram declined Z53.20 Colonoscopy refused Z53.20 Vitamin D deficiency E55.9 Night sweats R61 Assessment & Plan Assessment & Plan (1) Encounter for general adult medical examination with abnormal findings: Code(s): Z00.01 - Encounter for general adult medical examination with abnormal findings Category: Medical (2) Osteoarthritis of left knee: Code(s): M17.12 - Unilateral primary osteoarthritis, left knee Category: Medical Qualifiers: Osteoarthritis type: primary Qualified Code(s): M17.12 - Unilateral primary osteoarthritis, left knee (3) Hip pain, left: Code(s): M25.552 - Pain in left hip Category: Medical (4) Impaired fasting blood sugar: Code(s): R73.01 - Impaired fasting glucose Category: Medical (5) Urine incontinence: Code(s): R32 - Unspecified urinary incontinence Category: Medical Qualifiers: Urinary Incontinence type: mixed stress and urge incontinence Qualified Code(s): N39.46 - Mixed incontinence (6) Skin cancer screening: Code(s): Z12.83 - Encounter for screening for malignant neoplasm of skin Category: Medical (7) Mammogram declined: Code(s): Z53.20 - Procedure and treatment not carried out because of patient's decision for unspecified reasons Category: Medical (8) Colonoscopy refused: Code(s): Z53.20 - Procedure and treatment not carried out because of patient's decision for unspecified reasons Category: Medical (9) Vitamin D deficiency: Code(s): E55.9 - Vitamin D deficiency, unspecified Category: Medical (10) Night sweats: Code(s): R61 - Generalized hyperhidrosis Category: Medical Plan Physical exam appointment - The patient is a 74-year-old female presenting for a physical examination and management of musculoskeletal pain, with specific issues including knee pain post-meniscectomy and hip pain. Left - Knee pain persists in both knees and is attributed to osteoarthritis. She previously underwent a meniscectomy performed by Dr. Trejo. She reports chronic pain that has necessitated consideration for further evaluation by Dr. Trejo, the original surgeon. There is increased difficulty with walking due to the knee and hip pain. New referral placed, x-ray of left hip ordered - The patient has been experiencing hip pain for approximately a month and a half. The hip pain has shown slight improvement but remains persistent, affecting her mobility. - She is also experiencing night sweats for an extended period, which are distressing as they lead to disturbed sleep. I have sent Detrol 1 mg tablet to be started once a day Referral to urogynecologist placed as per patient's request - Urinary urgency and frequency are of concern but no episodes of incontinence have been reported. Symptoms are persistent and often troublesome. - Her vitamin D levels were low last year supplement sent - Overall, her primary concerns during the visit were related to the musculoskeletal pain and ongoing night sweats, along with health maintenance and wellness evaluations. She also would like to see Dermatology for skin cancer screening Medical History: - Osteoarthritis multiple joints especially knees and left hip - Low vitamin D - night sweats - colonoscopy mammogram refused - urine incontinence - Cologuard ordered, last Cologuard April of 2022 Health Maintenance - Cologuard test completed in April 2022 and scheduled for repeat - Discussion of mammogram with current decision to decline - Orthopedic referral for knee pain indicated - X-ray ordered for hip pain evaluation - Referral for dermatology and urogynecology services discussed - Discussion of vitamin D supplementation due to previously low levels - referral to Dermatology placed [facility] - Dr. Trejo (Orthopedic surgeon) Medications - Aleve (for pain management) OTC Patient Instructions - Continue taking Aleve for pain management as needed. - Schedule and complete hip x-ray as ordered. - Follow up with Dr. Trejo for knee pain evaluation. - Repeat Cologuard test as scheduled. - Begin vitamin D supplementation as instructed. - Plan for three-week telemedicine visit and annual physical exam. - Advised to ensure accurate contact information for health portal to receive notifications. - start Detrol 1 mg for urine incontinence and wait for urogynecology referral Orders: Orders XR hip LT min 2V Today M25.552 - Pain in left hip Complete Blood Count Auto Diff Today M17.12 - Unilateral primary osteoarthritis, left knee, M25.552 - Pain in left hip, R73.01 - Impaired fasting glucose, Z00.01 - Encounter for general adult medical examination with abnormal findings Comprehensive Placida. Panel Fast Today M17.12 - Unilateral primary osteoarthritis, left knee, M25.552 - Pain in left hip, R73.01 - Impaired fasting glucose, Z00.01 - Encounter for general adult medical examination with abnormal findings Lipid Panel Today M17.12 - Unilateral primary osteoarthritis, left knee, M25.552 - Pain in left hip, R73.01 - Impaired fasting glucose, Z00.01 - Encounter for general adult medical examination with abnormal findings TSH reflex Free T4 Today M17.12 - Unilateral primary osteoarthritis, left knee, M25.552 - Pain in left hip, R73.01 - Impaired fasting glucose, Z00.01 - Encounter for general adult medical examination with abnormal findings Hemoglobin A1c Today R73.01 - Impaired fasting glucose Vitamin D 25-OH (D2 and D3) Today M17.12 - Unilateral primary osteoarthritis, left knee, M25.552 - Pain in left hip, R73.01 - Impaired fasting glucose, Z00.01 - Encounter for general adult medical examination with abnormal findings Vitamin B12 Today M17.12 - Unilateral primary osteoarthritis, left knee, M25.552 - Pain in left hip, R73.01 - Impaired fasting glucose, Z00.01 - Encounter for general adult medical examination with abnormal findings Referrals Orthopedics Referral M17.12 - Unilateral primary osteoarthritis, left knee Urogynecology Referral R32 - Unspecified urinary incontinence Dermatology Referral Z12.83 - Encounter for screening for malignant neoplasm of skin Cologuard Test Z12.11 - Encounter for screening for malignant neoplasm of colon Medications: New tolterodine 1 mg PO BEDTIME 30 tabs 0RF
[2025-04-24 13:08] VITALS: BP 120/72; PULSE 66; TEMP 36.7; O2SAT 99; BMI 28.2
== END 2025-04-24 13:34 | disposition home or self-care (01) ==
LOC: HO.HMCC 13:03
PROVIDERS: PCP Internal Medicine; Visit Provider Internal Medicine
DX: Z00.01 Encounter for general adult medical examination with abnormal findings (principal); M17.12 Unilateral primary osteoarthritis, left knee; M25.552 Pain in left hip; R73.01 Impaired fasting glucose; N39.46 Mixed incontinence; Z12.83 Encounter for screening for malignant neoplasm of skin; Z53.20 Procedure and treatment not carried out because of patient's decision for unspecified reasons; E55.9 Vitamin D deficiency, unspecified; R61 Generalized hyperhidrosis

== ENCOUNTER → 2025-04-24 13:02 | Outpatient (BNVA) | payer MEDICARE, SELFPAY | PROVIDERS: PCP Internal Medicine; Visit Provider Internal Medicine | DX: Z00.01 Encounter for general adult medical examination with abnormal findings (principal); M17.12 Unilateral primary osteoarthritis, left knee; M25.552 Pain in left hip; R73.01 Impaired fasting glucose; N39.46 Mixed incontinence; E55.9 Vitamin D deficiency, unspecified; R61 Generalized hyperhidrosis | CPT/HCPCS: 99212; 99397 ==

== ENCOUNTER 2025-05-30 08:25 | Outpatient (AMB) | payer MEDICARE, SELFPAY ==
--- OUTSIDE RECORDS SUMMARY | 2025-05-30 08:38 | XMS_ITS | Clinical Summary ---
Author Organization [facility] Address [address] [place] [address] Care Team Providers Care Index Clerk Name Role Phone Unavailable Primary Care Provider Unavailabl e Surgical History Surgery Date Site/Laterality Comments NASAL SEPTUM SURGERY PROCEDURE: AL REPAIR NASAL SEPTAL PERFORATIONS UPPER GASTROINTESTINAL ENDOSCOPY 2010 PROCEDURE: AL UPPER GI ENDOSCOPY PERFORMED; COMMENT: Michelle at [facility] for melena. COLONOSCOPY 2010 PROCEDURE: HISTORICAL COLONOSCOPY; COMMENT: Michelle at [facility]; negative Family History Medical History Relation Name [...] - 2023-2 5 season) 2024 Influenza Vaccine (#1) 2025 0, 09/26/2015 Breast Cancer Screening Discontinued 08/14/20 19, [...] with the aid of computer-aided detection. Comparison is made with 08/04/2018 and as far back as 03/08/2013. Breast parenchyma is composed of scattered fibroglandular densities. No new suspicious mass, architectural distortion, or suspicious [...]
--- OUTSIDE RECORDS SUMMARY | 2025-05-30 08:38 | XMS_ITS | Data Portability ---
Author Organization [place] - [facility], Allergy Address [address] [address] Care Team Providers Care District Or District Office Director Name Role Phone ROGELIO SANTO Primary Care Provider Assessment Encounter Date Assessment Date Assessment LastModified [...] mcg (0.03 %) nasal spray 2024 025 [facility][id number], [address] [place], [id number], 10:22:37 Patient TargetsNo targets recorded. Patient InstructionsNo instructions recorded. Reason for Referral None Reported. Problems Name Problem SNOMED Code Status Onset Date Resolution Date Notes Provider Name and Address Organization Details Recorded Time Sensorine ural hearing loss of bilateral ears 104275709 Active 2017 Sensorine ural hearing loss, bilateral ; Note: Date Diagnosed : 05/04/2018 11:38 AM (H90.3) Not Available [facility] 4 03:15:06 Dizziness and giddiness 841350348 Active 2017 Dizziness and giddiness ; Note: Date Diagnosed : 05/04/2018 11:38 AM (R42) Not Available [facility] 4 03:15:06 Tinnitus of left ear 68704824243 06 Active 2019 Tinnitus, left ear; Note: Date Diagnosed : 05/21/2020 11:53 AM (H93.12) Not Available [facility] 4 03:15:06 Vasomotor rhinitis 2586989 Active 2021 Vasomotor rhinitis; Note: Date Diagnosed : 07/28/2022 1:38 PM (J30.0) Not Available [facility] 4 03:15:06 Bilateral diffuse otitis externa [id number] 13786 Active 2019 Diffuse otitis externa, bilateral ; Note: Date Diagnosed : 05/21/2020 11:53 AM (H60.313) Not Available [facility] 4 03:15:06 Anterior rhinorrhe a 362161283 Active 2024 SELENA POLLACK PA-C [address] [place] [address], [place], [phone] , [facility] - [facility] 5 10:21:48 Problem Notes None recorded. Medical Equipment None Reported. Allergies Allergen ID Allergen Name Allergen Category Reaction Reaction Severity Criticality Documentation Date Start Date Code Code System Note Provider Name and Address Organization Details Recorded Time 011292 Product containin g penicilli n (product) medicatio n other Not available Not available 04/03/2024 52169 8001 SNOMED React ion: unkno wn, unspe cifie d;; Not Available [facility] 4 01:20:04 325024 Substance with sulfonami de structure and antibacte rial mechanism of action (substanc e) medicatio n other Not available Not available 04/03/2024 30048 8003 SNOMED React ion: unkno wn, unspe cifie d;; Not Available [facility] 4 01:20:04 Medications Name Sig Start Date Stop Date Status Note LastModified by Organization Details LastModified Time alendronat e 70 mg tablet 2017 active Medicatio n ID: [id number] Du ration Value: 84 Brand Name: alendrona te Send Method: E-Prescri bed Subs Allowed: subs OK Medica tionGener icName: alendrona te Not Available Not Available Not Available clotrimazo le-betamet hasone 1 %-0.05 % topical cream Apply 1 a small amount twice a day 2021 active Medicatio n ID: [id number] Du ration Value: 14 Brand Name: clotrimaz [...] Updated DateTime 03/07/2025 157.48 cm 28 kg/m2 68261.63 g MACI MONROE [place] - [facility] 03/07/2025 10:17:04 Social History None recorded. Functional Status None recorded. Mental Status None recorded. Family History Nothing Reported. Medical History No medical history recorded. Gynecological HistoryNo gynecological history recorded. Obstetrics History GPAL:G 0 P 0 0 0 0 Past Encounters Encounter ID Performer Location Encounter Start Date Encounter Closed Date Diagnosis/Indication Diagnosis SNOMED-CT Code Diagnosis ICD10 Code Diagnosis Note [id number] SELENA POLLACK PA-C [facility] [address] [place] [address] 03/07/2025 10:01:39 03/07/2025 10:25:33 Anterior rhinorrhea 093216434 J34.89 Vasomotor rhinitis 55805 03 J30.0 Health Concerns Section Related Observation LastModified by Organization Detai ls LastModified Time None Recorded Concern Status LastModified by Organization Details LastModified Time None Recorded Advance Directives Directive None Recorded Payers Insurance Date Sequence Insurance Name Policy Number Policy Louise Covered Member ID Louise Member ID Guarantor Name 03/07/2025 1 [facility] (MEDICARE REPLACEMENT/A DVANTAGE - HMO) [id number] Tonya Gracia [id number] Tonya Gracia Notes Date Note Type Note Provider Name and Address Organization Details Recorded Time 03/07/2025 text/html 74-year-old femdiana lafleur presents for evaluation of the nose. She uses intranasal ipratropium bromide, and reports moderate symptomatic benefit. Denies frequent sneezing or nasal congestion. Occasional itchy eyes. She reports negative allergy workup in the past. No new concerns today. BERNY ZAMORA MD [address] [place] [address], [phone], [facility] - [facility] 03/07/2025 17:03:55 OBGyn Episode No OBEpisode recorded.
--- NOTE | 2025-05-30 10:11 | A.OFFPC_ITS ---
Intake Visit Reasons: f/up new med for bladder Allergies Sulfa (Sulfonamide Antibiotics) Adverse Reaction (Mild, Verified 04/24/25 13:09) Rash Medication List - Last Reconciled 05/30/25 by Michael Su MD calcium carbonate (Calcium 600) 600 mg PO DAILY ipratropium bromide 2 sprays intranasal TID magnesium citrate 100 mg PO DAILY multivitamin (Daily Multi-Vitamin tablet) 1 tab PO DAILY tolterodine 1 mg PO BEDTIME Tobacco use date assessed: 04/24/25 Dental Screening Dental Screen Date: 04/24/25 HPI f/up new med for bladder HPI Details History - The patient is a 74-year-old female pr esenting with hip and knee pain. - Hip pain: Reports ongoing hip pain whi ch has led to a scheduled orthopedic appointment on July 29 at 9:45 AM at [facility]. - Knee pain: Currently being managed wit h the help of Aleve - Medication efficacy: Reports feeling b lazarus after starting a new medication since the last visit, taking 1 mg detrol once daily at night. for urinary urgency , patient would like to continue that, she has cancelled uroglogy apt - X-ray and blood test: X-rays for hip a nd knee are pending; patient has not completed the ordered blood tests. - Diagnostic scheduling issue: There was a misunderstanding regarding scheduling an x-ray appointment, with confusion between general x-rays and the orthopedic examination. Medications: - Current medication: 1 mg of detrol ta margie at night, - Aleve, as needed, for hip pain managem ent. Problem List - Hip pain - Knee pain - Urinary urgecny Patient Instructions - Continue taking the Detrol, 1 mg at [facility]. - Complete the blood test and x-ray at [facility] next to the office; no appointment is needed. - Ensure the blood test is completed bef ore breakfast, fasting is required - Attend the orthopedic appointment at [facility] on July 29 at 9:45 AM. - Continue taking Aleve as needed for pa in management. Review of Systems. - General: No fever no chills - Neurological: No headaches no dizziness - Ear nose throat: No sore throat no hearing difficulty no ear pain - Cardiovascular: No syncope, no chest pain, no palpitations - Gastrointestinal: No nausea vomiting or diarrhea - Endocrine: No polyuria polydipsia no heat intolerance - Genitourinary: No dysuria , no blood in urine PFSH Medical History No significant past medical history Surgical History Hx of colonoscopy H/O arthroscopy of left knee Family History Sister Pancreatic cancer Brother Gallbladder cancer Father Respiratory failure Social History Housing: Apartment Patient Tobacco Use Status: Former Tobacco user e-Cigarette/Vaping Use: Never Used service: No Current occupational status: retired Cognitive needs: No Hearing needs: No Vision needs: No Questionnaire Thrive Questionnaire Date Thrive assessed: 04/24/25 EBONIE-7 AMB Questionnaire EBONIE-7 Date EBONIE - 7 assessed: 04/10/24 Source: Developed by Drs. Patrice Dutta, Najma Castañeda, Nick Mendez and colleagues, with an educational rocío from [employer]. Physical exam (Primary Care) Tobacco/Smoking Status: Tobacco use Status Tobacco use date assessed 04/24/25 04/24/25 13:06 Patient Tobacco Use Status Former Tobacco user 04/24/25 13:06 e-Cigarette/Vaping Use Never Used 04/24/25 13:06 Thrive Assessment: Date of Thrive Assessment Date Thrive assessed 04/24/25 04/24/25 13:06 Telehealth Telehealth Telehealth Platform: [facility] Location of provider rendering services: practice address Location of patient: address on file Patient Identification confirmed using: Name, : Yes Telehealth method: voice only Patient verbally consented to treatment: Yes Patient verbally consented to billing insurance company: Yes Patient informed of any privacy concerns related to visit: Yes Minutes spent on Phone/Video with Pt.: 13 Coding Level of Care Code Tele Est Pt Level 3 (80804) Diagnoses Primary osteoarthritis of left knee M17.12 Osteoarthritis type: primary Hip pain, left M25.552 Mixed stress and urge urinary incontinence N39.46 Urinary Incontinence type: mixed stress and urge incontinence Assessment & Plan Assessment & Plan (1) Osteoarthritis of left knee: Code(s): M17.12 - Unilateral primary osteoarthritis, left knee Category: Medical Qualifiers: Osteoarthritis type: primary Qualified Code(s): M17.12 - Unilateral primary osteoarthritis, left knee (2) Hip pain, left: Code(s): M25.552 - Pain in left hip Category: Medical (3) Urine incontinence: Code(s): R32 - Unspecified urinary incontinence Category: Medical Qualifiers: Urinary Incontinence type: mixed stress and urge incontinence Qualified Code(s): N39.46 - Mixed incontinence Plan History - The patient is a 74-year-old female presenting with hip and knee pain. - Hip pain: Reports ongoing hip pain which has led to a scheduled orthopedic appointment on July 29 at 9:45 AM at [facility]. - Knee pain: Currently being managed with the help of Aleve - Medication efficacy: Reports feeling better after starting a new medication since the last visit, taking 1 mg detrol once daily at night. for urinary urgency , patient would like to continue that, she has cancelled uroglogy apt - X-ray and blood test: X-rays for hip and knee are pending; patient has not completed the ordered blood tests. - Diagnostic scheduling issue: There was a misunderstanding regarding scheduling an x-ray appointment, with confusion between general x-rays and the orthopedic examination. Medications: - Current medication: 1 mg of detrol taken at night, - Aleve, as needed, for hip pain management. Problem List - Hip pain - Knee pain - Urinary urgecny / incontinece Patient Instructions - Continue taking the Detrol, 1 mg at night. - Complete the blood test and x-ray at the clinic next to the office; no appointment is needed. - Ensure the blood test is completed before breakfast, fasting is required - Attend the orthopedic appointment at [facility] on July 29 at 9:45 AM. - Continue taking Aleve as needed for pain management. Medications: Refilled tolterodine 1 mg PO BEDTIME 90 tabs 1RF
== END 2025-05-30 10:31 | disposition home or self-care (01) ==
LOC: HO.HMCC 08:25
PROVIDERS: PCP Internal Medicine; Visit Provider Internal Medicine
DX: M25.552 Pain in left hip (principal); M17.12 Unilateral primary osteoarthritis, left knee; N39.46 Mixed incontinence

== ENCOUNTER → 2025-08-14 13:11 | Outpatient (BNV) | payer MEDICARE, SELFPAY | PROVIDERS: Visit Provider Radiology Diagnostic Radiology | DX: M25.552 Pain in left hip (principal) | CPT/HCPCS: 73502 ==

== ENCOUNTER 2025-08-14 13:26 | Outpatient (REF) | payer MEDICARE, SELFPAY ==
--- NOTE | ~2025-08-14 | XR_ITS ---
EXAMINATION: XR HIP, LEFT CLINICAL INFORMATION: M25.552 - Pain in left hip COMPARISON: None available. TECHNIQUE: AP view of the pelvis, and 2 views of the left hip. FINDINGS: No fracture, dislocation, or suspicious bone lesion. There is a normal hip joint alignment. Normal femoral head contour without evidence of AVN. There are mild degenerative arthritis in the left greater than right hip joints. There is normal acetabular coverage bilaterally. No soft tissue abnormalities. XR/XR hip LT min 2V IMPRESSION: No acute findings of either hip. There is very mild osteoarthritis left greater than right. Electronically signed by: Emery Weiss MD 08/14/2025 02:38 PM EDT
--- OUTSIDE RECORDS SUMMARY | 2025-08-14 15:03 | XMS_ITS | Encounter Summary ---
Author Organization [facility] [employer] [facility] Address [address] [facility] [place] [address] Care Team Providers Care Advertising Campaign Manager Name Role Phone Kendra Acosta MD Primary Care Provider Unavailable Shiela Rhoades MD Primary Care Provider Unavail able [facility], Pcp Primary Care Provider [facility] Encounter Details Date Type Department Care Team Description 04/09/2014 Transfer Records Medical Records [address] [facility] [place] [address] Abstract, Provider Social History Tobacco Use Types Packs/Day Years Used Date Smoking Tobacco: Former Smokeless Tobacco: Never Alcohol Use Standard Drinks/Week Comments Yes 0 (1 standard drink = 0.6 oz pur e alcohol) occasional Sex Assigned at Date Recorded Not on file documented as of this encounter Plan of Treatment Not on file documented as of this encounter Visit Diagnoses Not on filedocumented in this encounter Care Teams Advertising Campaign Manager Relationship Specialty Start Date End Date Kendra Acosta MD PCP - General Internal Medicine 07/02/13 Shiela Rhoades MD PCP - General Internal Medicine 07/09/19 06/24/22 [facility], Pcp PCP - General Internal Medicine 06/25/22 documented as of this encounter
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
--- OUTSIDE RECORDS SUMMARY | 2025-08-14 15:03 | XMS_ITS | Encounter Summary ---
Author Organization [facility] [employer] [facility] Address [address] [place] [address] Care Team Providers Care Medical Technologist Chemistry Name Role Phone Kendra Acosta MD Primary Care Provider Unavailable Shiela Rhoades MD Primary Care Provider Unavail [facility], Pcp [facility] Encounter Details Date Type Department Care Team Description 07/27/2018 Orders Only Radiology - [address] [place] [address] Kendra Acosta MD Social History Tobacco Use Types Packs/Day Years [...] on filedocumented in this encounter Care Teams Medical Technologist Chemistry Relationship Specialty Start Date End Date Kendra Acosta MD PCP - General Internal Medicine 07/02/13 Shiela Rhoades MD PCP - General Internal Medicine 07/09/19 06/24/22 [facility], Pcp PCP - General Internal Medicine 06/25/22 documented as of this encounter
--- OUTSIDE RECORDS SUMMARY | 2025-08-14 15:03 | XMS_ITS | Encounter Summary ---
Author Organization [facility] [employer] [facility] Address [address] [facility] [place] [address] Care Team Providers Care Access Analyst Name Role Phone Kendra Acosta MD Primary Care Provider Unavailable Shiela Rhoades MD Primary Care Provider Unavail able [facility], Pcp Primary Care Provider Unavailabl e Encounter Details Date Type Department Care Team Description 12/01/2015 Coin Machine Servicer Repairer Report [facility] Records [address] [facility] [place] [address] Social History Tobacco Use Types Packs/Day Years [...] on filedocumented in this encounter Care Teams Access Analyst Relationship Specialty Start Date End Date Kendra Acosta MD PCP - General Internal Medicine 07/02/13 Shiela Rhoades MD PCP - General Internal Medicine 07/09/19 06/24/22 [facility], Pcp PCP - General Internal Medicine 06/25/22 documented as of this encounter
--- OUTSIDE RECORDS SUMMARY | 2025-08-14 15:03 | XMS_ITS | Encounter Summary ---
Author Organization [facility] [employer] [facility] Address [address] [facility] [place] [address] Care Team Providers Care Axminster Weaver Name Role Phone Kendra Acosta MD Primary Care Provider Unavailable Shiela Rhoades MD Primary Care Provider Unavail able [facility], Pcp Primary [facility] Encounter Details Date Type Department Care Team Description 05/04/2018 Administrative Assistant Report Medical Records [address] [facility] [place] [address] Patrice Sanders Social History Tobacco Use Types Packs/Day Years [...] on filedocumented in this encounter Care Teams Axminster Weaver Relationship Specialty Start Date End Date Kendra Acosta MD PCP - General Internal Medicine 07/02/13 Shiela Rhoades MD PCP - General Internal Medicine 07/09/19 06/24/22 [facility], Pcp PCP - General Internal Medicine 06/25/22 documented as of this encounter
--- OUTSIDE RECORDS SUMMARY | 2025-08-14 15:03 | XMS_ITS | Encounter Summary ---
Author Organization [facility] [employer] [facility] Address [address] [facility] [place] [address] Care Team Providers Care Cardiologist Name Role Phone Kendra Acosta MD Primary Care Provider Unavailable Shiela Rhoades MD Primary Care Provider Unavail able [facility], Pcp Primary Care Provider [facility] Encounter Details Date Type Department Care Team Description 01/04/2017 Business Doc Medical Records [address] [place] [address] [place] [address] Abstract, Provider Social History Tobacco Use Types Packs/Day Years Used Date Smoking Tobacco: Former Cigarettes 1 50 0 1961 - 11/21/2011 Smokeless Tobacco: Never Alcohol Use Standard Drinks/Week Comments Yes 0 (1 standard drink = 0.6 oz pur e alcohol) 3 drinks per weekl Sex Assigned at Date Recorded Not on file documented as of this encounter Plan of Treatment Not on file documented as of this encounter Visit Diagnoses Not on filedocumented in this encounter Care Teams Cardiologist Relationship Specialty Start Date End Date Kendra Acosta MD PCP - General Internal Medicine 07/02/13 Shiela Rhoades MD PCP - General Internal Medicine 07/09/19 06/24/22 [facility], [facility] PCP - General Internal Medicine 06/25/22 documented as of this encounter
--- OUTSIDE RECORDS SUMMARY | 2025-08-14 15:03 | XMS_ITS | Encounter Summary ---
Author Organization [facility] Address [address] [facility] [place] [address] Care Team Providers Care Cad Designer Drafter Name Role Phone Shiela Rhoades MD Primary Care Provider Unavail able [facility], Pcp Primary Care Provider Unavailabl e Encounter Details Date Type Department Care Team Description 12/14/2020 Pt. Non Urgent Medical Question Podiatry - [address] [place] [address] Robbin Smith DPM Social History Tobacco Use Types Packs/Day Years Used Date Smoking Tobacco: Former Cigarettes 1 50 0 1961 - 11/21/2011 Smokeless Tobacco: Never Alcohol Use Standard Drinks/Week Comments Yes 0 (1 standard drink = 0.6 oz pur e alcohol) 3 drinks per week Sex Assigned at Date Recorded Not on file COVID-19 Exposure Response Date Recorded In the last month, have you been in contact with someone who was confirmed or suspected to have Coronavirus / COVID-19? No / Unsure 12/10/2020 1:24 PM EST documented as of this encounter Plan of Treatment Not on file documented as of this encounter Visit Diagnoses Not on filedocumented in this encounter Care Teams Cad Designer Drafter Relationship Specialty Start Date End Date Shiela Rhoades MD PCP - General Internal Medicine 07/09/19 06/24/22 Christophe, Pcp PCP - General Internal Medicine 06/25/22 documented as of this encounter
--- OUTSIDE RECORDS SUMMARY | 2025-08-14 15:03 | XMS_ITS | Encounter Summary ---
Author Organization [facility] Address [address] [place] [address] Care Team Providers Care Supervisor Cigar Making Machine Name Role Phone Kendra Acosta MD Primary Care Provider Unavailable Shiela Rhoades MD Primary Care Provider Unavail [facility], Pcp Primary Care [facility] Reason for Referral * Non JOHN (Routine) - Closed Specialty Diagnoses / Procedures Referred By Tennille odell Referred To Contact Podiatry Procedures REFERRAL TO PODIATRY Kendra Acosta MD [address] [place] [id number] [facility]/[address] [address] Referral ID Status Reason Start Date Expiration Date Visits Re quested Visits Authorized [id number] Closed 11/18/2017 11/18/2018 1 1 Reason for Visit * Reason Onset Date Comments Tiltrotor Crew Chief Feedback 11/18/2017 podiatry Encounter Details Date Type Department Care Team Description 11/18/2017 Telephone Adult Medicine - [place] [address] [place] [address] Kendra Acosta MD Tiltrotor Crew Chief Feedback (podiatry) Social History Tobacco Use Types Packs/Day Years Used Date Smoking Tobacco: Former Cigarettes 1 50 0 1961 - 11/21/2011 Smokeless Tobacco: Never Alcohol Use Standard Drinks/Week Comments Yes 0 (1 standard drink = 0.6 oz pur e alcohol) 3 drinks per week Sex Assigned at Date Recorded Not on file documented as of this encounter Miscellaneous Notes * Telephone Encounter - Thiago Corbett M.A. - 12/05/2017 2:04 PM EST Left message on identified voicemail for pt to call again. * Telephone Encounter - Thiago Corbett M.A. - 12/05/2017 2:04 PM EST ----- Message from Vicki Thibodeaux NP sent at 12/01/2017 1:05 PM EST ----- Please let pt know that her blood work shows that she is prediabetic. This means that her sugars are starting to run high (about 120 fasting). This does not require medication. She should be eating alow-carb, low-fat diet and trying to exercise most days of the week. Her other testing was normal. I would like for her to schedule a follow-up for further discussion and possible further testing with Dr. Wall or Clau * Telephone Encounter - Thiago Corbett M.A. - 12/02/2017 3:24 PM EST Called patient 2nd time, Left message on identified voicemail for pt to call back. * Telephone Encounter - Thiago Corbett M.A. - 12/01/2017 4:53 PM EST Left message on identified voicemail for pt to call back. * Telephone Encounter - Thiago Corbett M.A. - 12/01/2017 4:53 PM EST ----- Message from Vicki Thibodeaux NP sent at 12/01/2017 1:05 PM EST ----- Please let pt know that her blood work shows that she is prediabetic. This means that her sugars are starting to run high (about 120 fasting). This does not require medication. She should be eating alow-carb, low-fat diet and trying to exercise most days of the week. Her other testing was normal. I would like for her to schedule a follow-up for further discussion and possible further testing with Dr. Wall or Clau * Telephone Encounter - Lakeisha Madera - 11/18/2017 2:25 PM EST Please review this patients new referral request. The referral has been pended. Please complete thefollowing: If approved> sign order If denied>please give instructions and route to your practice nursing pool. Practice nurse should inform referrals and the patient if denied. * Telephone Encounter - Mile Roman - 11/18/2017 2:20 PM EST Request for a referral to a [facility] Specialist for a patient with a [facility] PCP. If patient does NOT have a [facility] PCP they must obtain a referral from their PCP before being seen-do not submit request to Referrals department-contact patient. Toby WEBB and Sunny WEBB should not see patients with community PCP's as they are not billed as specialists. Specialty patient is being referred to: podiatry Name of Specialist patient is seeing: Camilo edwards Reason/diagnosis for visit: foot pain Date of appoinment: If retro, date referral needs to start: Kendra Acosta Payor: [facility] / Plan: [facility] MEDICARE COMPLETE $20/$45 SLC / Product Type: PPO [id number] documented in this encounter Plan of Treatment Not on file documented as of this encounter Visit Diagnoses Not on filedocumented in this encounter Care Teams Supervisor Cigar Making Machine Relationship Specialty Start Date End Date Kendra Acosta MD PCP - General Internal Medicine 07/02/13 Shiela Rhoades MD PCP - General Internal Medicine 07/09/19 06/24/22 [facility], Pcp PCP - General Internal Medicine 06/25/22 documented as of this encounter
--- OUTSIDE RECORDS SUMMARY | 2025-08-14 15:03 | XMS_ITS | Encounter Summary ---
Author Organization [facility] Address [address] [facility] [place] [address] Care Team Providers Care Cell Liner Name Role Phone Kendra Acosta MD Primary Care Provider Unavailable Shiela Rhoades MD Primary Care Provider Unavail [facility] Care [facility] Encounter Details Date Type Department Care Team Description 03/02/2016 Wellness Visit Medical Records [address] [facility] [place] [address] Kendra Acosta MD Social History Tobacco Use [...] on filedocumented in this encounter Care Teams Cell Liner Relationship Specialty Start Date End Date Kendra Acosta MD PCP - General Internal Medicine 07/02/13 Shiela Rhoades MD PCP - General Internal Medicine 07/09/19 06/24/22 [facility], [facility] PCP - General Internal Medicine 06/25/22 documented as of this encounter
--- OUTSIDE RECORDS SUMMARY | 2025-08-14 15:03 | XMS_ITS | Encounter Summary ---
Author Organization [facility] [employer] [facility] Address [address] [facility] [place] [address] Care Team Providers Care Houseman Name Role Phone Kendra Acosta MD Primary Care Provider Unavailable Shiela Rhoades MD Primary Care Provider Unavail [facility] Primary [facility] Reason for Visit * Reason Onset Date Comments other 12/23/2015 Physical Therapy report Encounter Details Date Type Department Care Team Description 12/23/2015 Telephone Orthopedics-[address] [address] Kiran Leonardo PA other (Physical Therapy report) Social History Tobacco Use Types Packs/Day Years Used Date Smoking Tobacco: Former Smokeless Tobacco: Never Alcohol Use Standard Drinks/Week Comments Yes 0 (1 standard drink = 0.6 oz pur e alcohol) occasional Sex Assigned at Date Recorded Not on file documented as of this encounter Miscellaneous Notes * Telephone Encounter - Mariely Shelby - 12/23/2015 9:03 AM EST Attain Therapy notes for review, signature and return fax to [phone]. Delivered to [facility]. documented in this encounter Plan of Treatment Not on file documented as of this encounter Visit Diagnoses Not on filedocumented in this encounter Care Teams Houseman Relationship Specialty Start Date End Date Kendra Acosta MD PCP - General Internal Medicine 07/02/13 Shiela Rhoades MD PCP - General Internal Medicine 07/09/19 06/24/22 [facility], Pcp PCP - General Internal Medicine 06/25/22 documented as of this encounter
--- OUTSIDE RECORDS SUMMARY | 2025-08-14 15:03 | XMS_ITS | Encounter Summary ---
Author Organization [facility] Address [address] [facility] [place] [address] Care Team Providers Care Program Project Analyst Name Role Phone Kendra Acosta MD Primary Care Provider Unavailable Shiela Rhoades MD Primary Care Provider Unavail able [facility], Pcp Primary Care Provider Unavailabl e Encounter Details Date Type Department Care Team Description 10/24/2015 Hereditary Cancer Qu iz Results Medical Records [address] [place] [address] Abstract, Provider Social History Tobacco Use Types [...] on filedocumented in this encounter Care Teams Program Project Analyst Relationship Specialty Start Date End Date Kendra Acosta MD PCP - General Internal Medicine 07/02/13 Shiela Rhoades MD PCP - General Internal Medicine 07/09/19 06/24/22 [facility], [facility] PCP - General Internal Medicine 06/25/22 documented as of this encounter
--- OUTSIDE RECORDS SUMMARY | 2025-08-14 15:03 | XMS_ITS | Encounter Summary ---
Author Organization [facility] Address [address] [place] [address] Care Team Providers Care Senior Policy Advisor Name Role Phone [place]-Kendra Chavez MD Primary Care Provider Unavailable Shiela Rhoades MD Primary Care Provider Unavail [facility] Encounter Details Date Type Department Care Team Description 04/30/2019 Refill Adult Medicine [address] [address] Maureen Peterson PA-C Social History Tobacco Use Types Packs/Day Years Used Date Smoking Tobacco: Former Cigarettes 1 50 0 1961 - 11/21/2011 Smokeless Tobacco: Never Alcohol Use Standard Drinks/Week Comments Yes 0 (1 standard drink = 0.6 oz pur e alcohol) 3 drinks per week Sex Assigned at Date Recorded Not on file documented as of this encounter Miscellaneous Notes * Telephone Encounter - Radha Alicea M.A. - 05/01/2019 6:57 AM EDT Last office visit 03/13/19 with Maureen Peterson PA-C Pt is suppose to have switched to Dr Rhoades but it has not happened in our system. * Telephone Encounter - Radha Alicea M.A. - 05/01/2019 6:53 AM EDTFrom: Tonya Gracia To: Maureen Peterson PA-C Sent: 04/30/2019 6:20 PM EDT Subject: Medication Renewal Request Original authorizing provider: Maureen Peterson PA-C Tonya Gracia would like a refill of the following medications: naproxen (NAPROSYN) 500 MG tablet [Maureen Peterson PA-C] Preferred pharmacy: [facility] [address] [place] [address] [place] AT [facility] [place] Comment: [facility] is [phone] fax number is [phone] These medications were written by old primary care provider Kendra Chavez in [place]. I know have a new provider in [place] I have seen her PAC once for shoulder pain. She prescribed the Naproxen. the other two are by Kendra young. They need you to call or fax them as above. I haven't had alendronate for 3 weeks now. Thank you [facility] has been my new insurance since November 2018 with a [place] provider Medication renewals requested in this message routed to other providers: alendronate (FOSAMAX) 70 MG tablet [Kendra Young MD] Other - see comments for explanation documented in this encounter Plan of Treatment Not on file documented as of this encounter Visit Diagnoses Not on filedocumented in this encounter Care Teams Senior Policy Advisor Relationship Specialty Start Date End Date Kendra Young MD PCP - General Internal Medicine 07/02/13 Shiela Rhoades MD PCP - General Internal Medicine 07/09/19 06/24/22 [facility], Pcp PCP - General Internal Medicine 06/25/22 documented as of this encounter
--- OUTSIDE RECORDS SUMMARY | 2025-08-14 15:03 | XMS_ITS | Encounter Summary ---
Author Organization [facility] Address [address] [facility] [place] [address] Care Team Providers Care Plant Changer Name Role Phone Kendra Acosta MD Primary Care Provider Unavailable Shiela Rhoades MD Primary Care Provider Unavail able [facility], Pcp Primary Care Provider Unavailabl e Encounter Details Date Type Department Care Team Description 12/27/2013 Transfer Records Medical Records [address] [place] [address] Abstract, Provider Social History Tobacco Use Types Packs/Day Years Used Date Smoking Tobacco: Former Smokeless Tobacco: Never Alcohol Use Standard Drinks/Week Comments No 0 (1 standard drink = 0.6 oz pur e alcohol) Sex Assigned at Date Recorded Not on file documented as of this encounter Plan of Treatment Not on file documented as of this encounter Visit Diagnoses Not on filedocumented in this encounter Care Teams Plant Changer Relationship Specialty Start Date End Date Kendra Acosta MD PCP - General Internal Medicine 07/02/13 Shiela Rhoades MD PCP - General Internal Medicine 07/09/19 06/24/22 [facility], Pcp PCP - General Internal Medicine 06/25/22 documented as of this encounter
--- OUTSIDE RECORDS SUMMARY | 2025-08-14 15:03 | XMS_ITS | Encounter Summary ---
Author Organization [email or web address] Address [address] [facility] [place] [address] Care Team Providers Care Trade Manager Name Role Phone Kendra Acosta MD Primary Care Provider Unavailable Shiela Rhoades MD Primary Care Provider Unavail [facility] Pcp [facility] Encounter Details Date Type Department Care Team Description 02/28/2014 Pt. Non Urgent Medic al Question OBGYN - [place] [address] [place] [address] Anam Fernandez MD Social History Tobacco Use Types Packs/Day Years Used Date Smoking Tobacco: Former Smokeless Tobacco: Never Alcohol Use Standard Drinks/Week Comments Yes 0 (1 standard drink = 0.6 oz pur e alcohol) occasional Sex Assigned at Date Recorded Not on file documented as of this encounter Progress Notes * Torie Lea R.N. - 02/28/2014 10:38 AM EDTFrom: APPLE NIX To: Anam Fernandez MD Sent: [facility] Feb 28, 2014 10:36 AM Subject: bone density Would u please explain this test to me i just don't understand am I osteopenic? documented in this encounter Plan of Treatment Not on file documented as of this encounter Visit Diagnoses Not on filedocumented in this encounter Care Teams Trade Manager Relationship Specialty Start Date End Date Kendra Acosta MD PCP - General Internal Medicine 07/02/13 Shiela Rhoades MD PCP - General Internal Medicine 07/09/19 06/24/22 [facility], Pcp PCP - General Internal Medicine 06/25/22 documented as of this encounter
--- OUTSIDE RECORDS SUMMARY | 2025-08-14 15:03 | XMS_ITS | Encounter Summary ---
Author Organization [facility] Address [address] [facility] [place] [address] Care Team Providers Care Hospice Care Consultant Name Role Phone [place]rak[place]-Kendra Chavez MD Primary Care Provider Unavailable Shiela Rhoades MD Primary Care Provider Unavail [facility], [facility] Reason for Visit * Reason Onset Date Comments Shoulder Pain 03/29/2019 Encounter Details Date Type Department Care Team Description 03/29/2019 Telephone Adult Medicine [address] [id number] Sekou Peterson PA-C Shoulder Pain Social History Tobacco Use Types Packs/Day Years Used Date Smoking Tobacco: Former Cigarettes 1 50 0 1961 - 11/21/2011 Smokeless Tobacco: Never Alcohol Use Standard Drinks/Week Comments Yes 0 (1 standard drink = 0.6 oz pur e alcohol) 3 drinks per week Sex Assigned at Date Recorded Not on file documented as of this encounter Miscellaneous Notes * Telephone Encounter - Gisele Rivera R.N. - 03/29/2019 9:53 AM EDT Pt is still C/O shoulder pain, she cannot sl;eep at night because she has pain, cannot find a comfortable position. Pt has no chest pain or SOB, she has not been ill, has pain in the shoulder with any movement , worse at night, she has no new joint pains, joint is not hot red or swelling, hand has nl CSM, Pt is scheduled to see ortho 04/19 Asking for medication for the pain, she has been taking tylenol with no effect * Telephone Encounter - Karen Yesenia - 03/29/2019 9:39 AM EDT Symptoms patient is presenting: shoulder pain/ saw sekou Peterson on 03/13/ requesting something for pain/unable to sleep If pain or injury related was it due to an accident at work or from a motor vehicle accident? NO If yes, gather 3rd constitution party insurance information Date of accident/Injury: How long has patient had these symptoms?: 2 weeks PCP: Kendra Acosta Payor: [facility] / Plan: [facility] PPO F 1+/$40 / Product Type: PPO [id number] documented in this encounter Plan of Treatment Not on file documented as of this encounter Visit Diagnoses Not on filedocumented in this encounter Care Teams Hospice Care Consultant Relationship Specialty Start Date End Date Kendra Acosta MD PCP - General Internal Medicine 07/02/13 Shiela Rhoades MD PCP - General Internal Medicine 07/09/19 06/24/22 [facility], Pcp PCP - General Internal Medicine 06/25/22 documented as of this encounter
--- OUTSIDE RECORDS SUMMARY | 2025-08-14 15:03 | XMS_ITS | Encounter Summary ---
Author Organization [facility] [employer] [facility] Address [address] [facility] [place] [address] Care Team Providers Care Felt Hat Pouncing Operator Hand Name Role Phone Kendra Acosta MD Primary Care Provider Unavailable Shiela Rhoades MD Primary Care Provider Unavail able [facility], Pcp [facility] Encounter Details Date Type Department Care Team Description 08/23/2016 [facility] Medical Records [address] [place] [address] Jesse Trejo MD Social History Tobacco Use Types Packs/Day [...] on filedocumented in this encounter Care Teams Felt Hat Pouncing Operator Hand Relationship Specialty Start Date End Date Kendra Acosta MD PCP - General Internal Medicine 07/02/13 Shiela Rhoades MD PCP - General Internal Medicine 07/09/19 06/24/22 [facility], [facility] PCP - General Internal Medicine 06/25/22 documented as of this encounter
--- OUTSIDE RECORDS SUMMARY | 2025-08-14 15:03 | XMS_ITS | Encounter Summary ---
Author Organization [facility] Address [address] [facility] [place] [address] Care Team Providers Care Compounding Technician Name Role Phone Kendra Acosta MD Primary Care Provider Unavailable Shiela Rhoades MD Primary Care Provider Unavail able [facility], Pcp Primary Care Provider Unavailabl e Encounter Details Date Type Department Care Team Description 10/06/2015 Design Transferrer Report [facility] [address] [facility] [place] [address] Social History Tobacco Use Types Packs/Day Years [...] on filedocumented in this encounter Care Teams Compounding Technician Relationship Specialty Start Date End Date Kendra Acosta MD PCP - General Internal Medicine 07/02/13 Shiela Rhoadse MD PCP - General Internal Medicine 07/09/19 06/24/22 [facility], Pcp PCP - General Internal Medicine 06/25/22 documented as of this encounter
--- OUTSIDE RECORDS SUMMARY | 2025-08-14 15:03 | XMS_ITS | Encounter Summary ---
Author Organization [facility] [employer] [facility] Address [address] [facility] [place] [address] Care Team Providers Care Assistant Child Care Teacher Name Role Phone Kendra Acosta MD Primary Care Provider Unavailable Shiela Rhoades MD Primary Care Provider Unavail able [facility], Pcp Primary Care [facility] Encounter Details Date Type Department Care Team Description 12/28/2013 Release of Information Medical Records [address] [place] [address] [place] [address] Abstract, Provider Social History Tobacco Use Types [...] on filedocumented in this encounter Care Teams Assistant Child Care Teacher Relationship Specialty Start Date End Date Kendra Acosta MD PCP - General Internal Medicine 07/02/13 Shiela Rhoades MD PCP - General Internal Medicine 07/09/19 06/24/22 [facility], Pcp PCP - General Internal Medicine 06/25/22 documented as of this encounter
== END 2025-08-14 13:27 | disposition home or self-care (01) ==
LOC: HO.HOSX 13:26
PROVIDERS: Visit Provider Physician Assistant
DX: M70.62 Trochanteric bursitis, left hip (principal)
CPT/HCPCS: 73502; 99202

== ENCOUNTER 2025-08-14 13:38 | Outpatient (AMB) | payer MEDICARE, SELFPAY ==
--- NOTE | 2025-08-14 13:45 | MHC.OFFVIS ---
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 Patient was seen by PCP who ordered x-rays and referred to orthopedics. Patient reports her pain has been present for about 5 months and is located at the lateral aspect of hip. Her pain comes and goes, mostly at night with laying going down her left side. Denies injury. NO previous treatment. Finds temporary relief with use of Aleve, heat, and lidocaine patches. 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 She states the pain is worse with laying on the left side. No groin pain. She denies lumbar pain, denies n/t down the leg. [facility] Medical History No significant past medical history Surgical History Hx of colonoscopy H/O arthroscopy of left knee Family History Sister Pancreatic cancer Brother Gallbladder cancer Father Respiratory failure Social History Housing: Apartment Patient Tobacco Use Status: Former Tobacco user e-Cigarette/Vaping Use: Never Used service: No Current occupational status: retired Cognitive needs: No Hearing needs: No Vision needs: No Review of Systems Const All systems reviewed & are unremarkable except as noted in HPI and below Physical Exam Vital Signs: BMI result Body Mass Index 28.2 Const General: cooperative and no acute distress Orientation/consciousness: patient oriented x3 Resp Effort & Inspection: normal respiratory effort and able to speak in complete sentences Cardio Peripheral pulses: Peripheral pulses 2+ throughout Neuro General: patient oriented x3 Extrem Other: Left hip normal to inspection. No pain with ROM of the hip. Pain along the greater trochanter. No pain with hip flexion or abduction.There is tenderness along the si joint, Negative SLR. NVI. Results Reviewed Results Reviewed: Of the left hip obtained in the office today and reviewed by me show mild sclerotic changes of the acetabulum Assessment & Plan Assessment & Plan (1) Trochanteric bursitis, left hip: Code(s): M70.62 - Trochanteric bursitis, left hip Category: Medical Plan: We discussed options today which includes physical therapy to work on strengthening and conditioning exercises. I did place an order and she will contact them to make an appointment. I also offered her steroid injection of the left hip but she declined at this time. I did send a prescription for Celebrex to the pharmacy to take 1 tablet twice a day for 2 weeks to help with the inflammation. If she decides to proceed with the injection she can contact our office to schedule otherwise she will follow up as needed. Orders: Orders PT Evaluation and Treatment Today M70.62 - Trochanteric bursitis, left hip Medications: New celecoxib (Celebrex) 200 mg PO BID 60 caps 3RF 30 days Coding Level of Care Code Est Pt Level 3 (50449) Complex EM visit Add On G2211 Diagnoses Trochanteric bursitis, left hip M70.62
[2025-08-14 13:51] VITALS: BMI 28.2
== END 2025-08-14 15:18 | disposition home or self-care (01) ==
LOC: HO.HOS 13:38
PROVIDERS: PCP Internal Medicine; Visit Provider Physician Assistant
DX: M70.62 Trochanteric bursitis, left hip (principal)
CPT/HCPCS: 99203; G2211

== ENCOUNTER 2025-10-10 09:22 | Outpatient (REF) | payer MEDICARE, SELFPAY ==
--- NOTE | ~2025-10-10 | XR_ITS ---
EXAMINATION: CLINICAL INFORMATION: COMPARISON: None TECHNIQUE: FINDINGS: XR/XR Knee Jimmy 3V IMPRESSION: Electronically signed by: Wade Ghosh MD 10/11/2025 08:04 AM CHRISTOPHER
--- OUTSIDE RECORDS SUMMARY | 2025-10-11 09:48 | XMS_ITS | Clinical Summary ---
Author Organization [facility] Address [address] [place] [address] Care Team Providers Care Dial Buffer Name Role Phone Unavailable Primary Care Provider Unavailabl e Surgical History Surgery Date Site/Laterality Comments NASAL SEPTUM SURGERY PROCEDURE: [place] REPAIR NASAL SEPTAL PERFORATIONS UPPER GASTROINTESTINAL ENDOSCOPY 2010 PROCEDURE: [place] UPPER GI ENDOSCOPY PERFORMED; COMMENT: Michelle at [facility] for melena. COLONOSCOPY 2010 PROCEDURE: HISTORICAL COLONOSCOPY; COMMENT: Michelle at [facility]; negative Family History Medical History Relation [...] (2 - Td or Tdap) 12/25/2023 12/25/2013 Depression Screening 11/21/2024 COVID-19 Vaccine (2024-2 6 season) 2025 Influenza Vaccine (#1) 2025 0, 09/26/2015 Breast [...]
== END 2025-10-10 09:23 | disposition home or self-care (01) ==
LOC: HO.HOSX 09:22
PROVIDERS: Visit Provider Physician Assistant
DX: M17.0 Bilateral primary osteoarthritis of knee (principal)
CPT/HCPCS: 73562; 99212

== ENCOUNTER 2025-10-10 11:42 | Outpatient (AMB) | payer MEDICARE, SELFPAY ==
--- NOTE | 2025-10-10 11:57 | A.OFFVIS_ITS ---
Intake Visit Reasons: Newprob-Pain in both knees Intake Note: Tonya is a 75 year old female who presents today as a new problem for bilateral knee pain. At last visit on 08/14/25 she was referred to physical therapy and given an injection in the Left Knee (2021). Patient reports that this injection was helpful in the past but does not feel that she needs another. Bilateral knees have been painful for about a year now. The right knee is more painful than the left. Her primary concern is that her knees are painful when walking but in the same sentance reports that they are not painful. Allergies Sulfa (Sulfonamide Antibiotics) Adverse Reaction (Mild, Verified 08/14/25 13:51) Rash Medication List - Last Reconciled 10/10/25 by Darien Gagnon PA-C calcium carbonate (Calcium 600) 600 mg PO DAILY ipratropium bromide 2 sprays intranasal TID magnesium citrate 100 mg PO DAILY multivitamin (Daily Multi-Vitamin tablet) 1 tab PO DAILY tolterodine 1 mg PO BEDTIME tretinoin 0.025% appl topical DAILY HPI HPI Newprob-Pain in both knees: Details: 75-year-old female presents to the office today for bilateral knee pain. She saw me in the past and even had injections in her knees with some relief. She denies new injury. She denies worsening pain. She is simply coming in today just for a routine visit. [facility] Medical History No significant past medical history Surgical History Hx of colonoscopy H/O arthroscopy of left knee Family History Sister Pancreatic cancer Brother Gallbladder cancer Father Respiratory failure Social History Housing: Apartment Patient Tobacco Use Status: Former Tobacco user e-Cigarette/Vaping Use: Never Used service: No Current occupational status: retired Cognitive needs: No Hearing needs: No Vision needs: No Review of Systems Const All systems reviewed & are unremarkable except as noted in HPI and below Physical Exam Const General: cooperative, healthy appearing, comfortable, no acute distress, well developed and alert Orientation/consciousness: patient oriented x3 HEENT Head: Yes normal to inspection, Yes normocephalic and Yes atraumatic Eyes General: appearance normal, both eyes and all related structures Resp Effort & Inspection: normal respiratory effort and able to speak in complete sentences Cardio Peripheral pulses: Peripheral pulses 2+ throughout Neuro General: patient oriented x3 Extrem Other: Bilateral knee: Skin intact, no erythema or joint effusion. No significant tenderness along the medial or lateral joint line. ROM full with crepitus. Negative steinmans. No ligamentous laxity. NVI. Results Reviewed Results Reviewed: X-rays of both knees obtained in the office today and reviewed by me show mild medial compartment arthritis with patellofemoral OA. Assessment & Plan Assessment & Plan (1) Bilateral primary osteoarthritis of knee: Code(s): M17.0 - Bilateral primary osteoarthritis of knee Category: Medical Plan: We discussed options which includes physical therapy for routine strengthening conditioning exercises. The patient declined and states she will do her own home exercises. She will modify activities as needed and if symptoms arise she can call us otherwise follow up as needed. Orders: Orders XR Knee Jimmy 3V Today M25.561 - Pain in right knee, M25.562 - Pain in left knee Coding Level of Care Code Complex visit Add On G2211 Diagnoses Bilateral primary osteoarthritis of knee M17.0
--- OUTSIDE RECORDS SUMMARY | 2025-10-10 17:58 | XMS_ITS | Data Portability ---
Author Organization [place] - [facility], Allergy Address [address] [address] Care Team Providers Care Controller Operations And Hr Manager Name Role Phone ROGELIO SANTO Primary Care Provider [phone] Assessment Encounter Date Assessment Date Assessment LastModified [...] mcg (0.03 %) nasal spray 2024 025 [employer] #[id number], [address] [place], [id number], 10:22:37 Patient TargetsNo targets recorded. Patient InstructionsNo instructions recorded. Reason for Referral None Reported. Problems Name Problem SNOMED Code Status Onset Date Resolution Date Notes Provider Name and Address Organization Details Recorded Time Sensorine ural hearing loss of bilateral ears 690872735 Active 2017 Sensorine ural hearing loss, bilateral ; Note: Date Diagnosed : 05/04/2018 11:38 AM (H90.3) Not Available [facility] 4 03:15:06 Dizziness and giddiness 417866416 Active 2017 Dizziness and giddiness ; Note: Date Diagnosed : 05/04/2018 11:38 AM (R42) Not Available [facility] 4 03:15:06 Tinnitus of left ear 54636137560 06 Active 2019 Tinnitus, left ear; Note: Date Diagnosed : 05/21/2020 11:53 AM (H93.12) Not Available [facility] 4 03:15:06 Bilateral diffuse otitis externa 41521999365 66821 Active 2019 Diffuse otitis externa, bilateral ; Note: Date Diagnosed : 05/21/2020 11:53 AM (H60.313) Not Available [facility] 4 03:15:06 Vasomotor rhinitis 4904375 Active 2021 Vasomotor rhinitis; Note: Date Diagnosed : 07/28/2022 1:38 PM (J30.0) Not Available [facility] 4 03:15:06 Anterior rhinorrhe a 427900065 Active 2024 SELENA POLLACK PA-C [address] [place] [address], [place], [address] , [facility] - [facility] 5 10:21:48 Problem Notes None recorded. Medical Equipment None Reported. Allergies Allergen ID Allergen Name Allergen Category Reaction Reaction Severity Criticality Documentation Date Start Date Code Code System Note Provider Name and Address Organization Details Recorded Time 533816 Product containin g penicilli n (product) medicatio n other Not available Not available 04/03/2024 08535 8001 SNOMED React ion: unkno wn, unspe cifie d;; Not Available [facility] 4 01:20:04 422935 Substance with sulfonami de structure and antibacte rial mechanism of action (substanc e) medicatio n other Not available Not available 04/03/2024 95844 8003 SNOMED React ion: unkno wn, unspe cifie d;; Not Available [facility] 4 01:20:04 Medications Name Sig Start Date Stop Date Status Note LastModified by Organization Details LastModified Time alendronat e 70 mg tablet 2017 active Medicatio n ID: [id number] Du ration Value: 84 Brand Name: alendrona te Send Method: E-Prescri bed Subs Allowed: subs OK Medica tionGener icName: alendrona te Not Available Not Available Not Available clotrimazo le-betamet hasone 1 %-0.05 % topical cream Apply 1 a small amount twice a day 2021 active Medicatio n ID: [id number] Du ration Value: 14 Brand Name: clotrimaz [...] Updated DateTime 03/07/2025 157.48 cm 28 kg/m2 90659.63 g MACI MONROE [place] - [facility] 03/07/2025 10:17:04 Social History None recorded. Functional Status None recorded. Mental Status None recorded. Family History Nothing Reported. Medical History No medical history recorded. Gynecological HistoryNo gynecological history recorded. Obstetrics History GPAL:G 0 P 0 0 0 0 Past Encounters Encounter ID Performer Location Encounter Start Date Encounter Closed Date Diagnosis/Indication Diagnosis SNOMED-CT Code Diagnosis ICD10 Code Diagnosis IMO Codes Diagnosis Note [id number] SELENA POLLACK PA-C [facility] [address] [address] 03/07/2025 10:01:39 03/07/2025 10:25:33 Anterior rhinorrhea 730435692 J34.89 Vasomotor rhinitis 55713 03 J30.0 Health Concerns Section Related Observation LastModified by Organization Detai ls LastModified Time None Recorded Concern Status LastModified by Organization Details LastModified Time None Recorded Advance Directives Directive None Recorded Payers Insurance Date Sequence Insurance Name Policy Number Policy Oluise Covered Member ID Louise Member ID Guarantor Name 03/07/2025 1 [facility] (MEDICARE REPLACEMENT/A DVANTAGE - HMO) [id number] Tonya Knight Basil [id number] Tonya Gracia Notes Date Note Type Note Provider Name and Address Organization Details Recorded Time 03/07/2025 text/html ROS as noted in the HPI 74-year-old female presents for evaluation of the nose. She uses intranasal ipratropium bromide, and reports moderate symptomatic benefit. Denies frequent sneezing or nasal congestion. Occasional itchy eyes. She reports negative allergy workup in the past. No new concerns today. BERNY ZAMORA MD [address] [place] [address], [phone], [facility] - [facility] 03/07/2025 17:03:55 OBGyn Episode No OBEpisode recorded.
== END 2025-10-10 12:09 | disposition home or self-care (01) ==
LOC: HO.HOS 11:42
PROVIDERS: Visit Provider Physician Assistant
DX: M17.0 Bilateral primary osteoarthritis of knee (principal)
CPT/HCPCS: 99213

== ENCOUNTER → 2025-10-10 11:47 | Outpatient (BNV) | payer MEDICARE, SELFPAY | PROVIDERS: Visit Provider Radiology Diagnostic Ultrasound | DX: M25.561 Pain in right knee (principal); M25.562 Pain in left knee | CPT/HCPCS: 73562 ==